=== PATIENT | female | born 1945 | race Caucasian/White ===

== ENCOUNTER 2017-10-10 17:20 | Inpatient (IN) | payer MEDICARE, BC ==
--- NOTE | 2017-10-10 17:42 | ER Document Report ---
ED Fall - General Mode of Arrival: Ambulatory Information source: Patient <KIRBY RITCHIEMARY - Last Filed: 10/10/17 17:46> <KULWINDER BENNETT - Last Filed: 10/10/17 22:11> - General Stated Complaint: HIP PAIN Time Seen by Provider: 10/10/17 17:33 Notes: Patient is a 72 year old female presents to the emergency department complaining of left hip pain secondary to a mechanical trip and fall. Patient states she was getting the mail and walking back to her house she tripped and fell. According to nurse, EMS found the patient ambulating upon their arrival. Patient states also complains of some heartburn onset this morning and nausea onset after the fall. She denies any loss of consciousness or head trauma. (ERMAEMMANUEL) - Related data Allergies/Adverse Reactions: Penicillins Allergy (Verified 10/10/17 19:32) Past Medical History - General Information source: Patient - Social History Smoking Status: Current Every Day Smoker Cigarette use (# per day): Yes Chew tobacco use (# tins/day): No Smoking Education Provided: No Frequency of alcohol use: None Drug Abuse: None Family History: Reviewed & Not Pertinent Psychiatric Medical History: Reports: Hx Schizophrenia <ERMA,KIRBYMARY - Last Filed: 10/10/17 17:46> Review of Systems - Review of Systems Constitutional: No symptoms reported EENT: No symptoms reported Cardiovascular: See HPI Respiratory: No symptoms reported Gastrointestinal: See HPI, Nausea Genitourinary: No symptoms reported Female Genitourinary: No symptoms reported Musculoskeletal: See HPI Skin: No symptoms reported Hematologic/Lymphatic: No symptoms reported Neurological/Psychological: No symptoms reported -: Yes All other systems reviewed and negative <EMMANUEL RITCHIE - Last Filed: 10/10/17 17:46> Physical Exam <EMMANUEL RITCHIE - Last Filed: 10/10/17 17:46> <KULWINDER BENNETT - Last Filed: 10/10/17 22:11> - Vital signs Vitals: Resp 13 10/10/17 17:27 - Notes Notes: GENERAL: Alert, interacts well. No acute distress. HEAD: Normocephalic, atraumatic. EYES: Pupils equal, round, and reactive to light. Extraocular movements intact. ENT: Oral mucosa moist, tongue midline. NECK: Full range of motion. Supple. Trachea midline. LUNGS: Clear to auscultation bilaterally, no wheezes, rales, or rhonchi. No respiratory distress. HEART: Regular rate and rhythm. No murmurs, gallops, or rubs. ABDOMEN: Soft, non-tender. Non-distended. Bowel sounds present in all 4 quadrants. EXTREMITIES: Moves all 4 extremities spontaneously. Left leg is shorter than the right. Tender to palpation to the left greater trochanter. Pelvis binder in place, poorly. No edema, radial and dorsalis pedis pulses 2/4 bilaterally. No cyanosis. NEUROLOGICAL: Alert and oriented x3. Normal speech. PSYCH: Normal affect, normal mood. SKIN: Warm, dry, normal turgor. No rashes or lesions noted. (EMMANUEL RITCHIE) Course <EMMANUEL RITCHIE - Last Filed: 10/10/17 17:46> - Laboratory Result Diagrams: 10/10/17 19:00 10/10/17 19:00 <KULWINDER BENNETT - Last Filed: 10/10/17 22:11> - Re-evaluation Re-evalutation: 10/10/17 20:32 Mechanical trip and fall, no head injury, no indication for intracranial imaging , x-ray of the hip reveals left intertrochanteric hip fracture, he did perform a chest x-ray and initial cardiac workup as she complained of indigestion for the majority of the day prior to the fall, EKG is nonischemic, blood work is grossly unremarkable and cardiac enzymes are negative. Discussed the patient with Dr. Mas who states he would be happy to consult to repair the hip fracture but requests admission and medical management by the hospitalist. Discussed with Dr. Romie Leahy who agrees to admit the patient to his service on the telemetry care floor (KULWINDER BENNETT) - Vital Signs Vital signs: Temp Pulse Resp BP Pulse Ox 98.1 F 20 149/70 H 97 10/10/17 17:32 10/10/17 20:00 10/10/17 17:28 10/10/17 20:00 - Laboratory Laboratory results interpreted by me: 10/10/17 10/10/17 19:00 19:00 WBC 10.7 H Seg Neutrophils % 90.4 H Lymphocytes % 6.6 L Monocytes % 2.6 L Absolute Neutrophils 9.6 H BUN 31 H Est GFR ( Amer) 58 L Est GFR (Non-Af Amer) 48 L Glucose 158 H Total Protein 5.7 L - EKG Interpretation by Me Additional EKG results interpreted by me: 10/10/17 20:33 EKG shows sinus rhythm at a rate of 71, left axis deviation, normal intervals, no ST segment elevations or depressions, there are T-wave inversions in 1 and aVL per my interpretation. (KULWINDER BENNETT) Discharge <EMMANUEL RITCHIE - Last Filed: 10/10/17 17:46> - Discharge Admitting Provider: [facility] Unit Admitted: Telemetry <KULWINDER BENNETT - Last Filed: 10/10/17 22:11> - Discharge Clinical Impression: Hip fracture, left Qualifiers: Encounter type: initial encounter Fracture type: closed Qualified Code(s): S72.002A - Fracture of unspecified part of neck of left femur, initial encounter for closed fracture Condition: Stable Disposition: ADMITTED INPATIENT Scribe Attestation: 10/10/17 22:11 I personally performed the services described in the documentation, reviewed and edited the documentation which was dictated to the scribe in my presence, and it accurately records my words and actions. (KULWINDER BENNETT) Scribe Documentation - Scribe Written by Maira:: Maira Ramos, 10/10/2017 17:47 acting as scribe for :: [place] <EMMANUEL RITCHIE - Last Filed: 10/10/17 17:46>
--- NOTE | 2017-10-10 18:38 | RADIOLOGY REPORT (SQ) ---
EXAM DESCRIPTION: CHEST SINGLE VIEW COMPLETED DATE/TIME: 10/10/2017 6:24 pm REASON FOR STUDY: fall, left hip pain, heartburn COMPARISON: None. EXAM PARAMETERS: NUMBER OF VIEWS: One view. TECHNIQUE: Single frontal radiographic view of the chest acquired. RADIATION DOSE: NA LIMITATIONS: None. FINDINGS: LUNGS AND PLEURA: No opacities, masses or pneumothorax. No pleural effusion. MEDIASTINUM AND HILAR STRUCTURES: No masses. Contour normal. HEART AND VASCULAR STRUCTURES: Heart normal in size. Normal vasculature. BONES: No acute findings. HARDWARE: None in the chest. OTHER: No other significant finding. IMPRESSION: NO ACUTE RADIOGRAPHIC FINDING IN THE CHEST. TECHNICAL DOCUMENTATION: JOB ID: [id number] [employer]- All Rights Reserved Reading location - IP/workstation name: [email or web address]
--- NOTE | 2017-10-10 18:39 | RADIOLOGY REPORT (SQ) ---
EXAM DESCRIPTION: HIP LEFT AP/LATERAL COMPLETED DATE/TIME: 10/10/2017 6:24 pm REASON FOR STUDY: fall, left hip pain, heartburn COMPARISON: None. NUMBER OF VIEWS: Two views. TECHNIQUE: AP pelvis and additional frog-leg view of the left hip. LIMITATIONS: None. FINDINGS: MINERALIZATION: Normal. LEFT HIP: Comminuted intratrochanteric fracture of the left hip. The femoral head it remains well se ated within the acetabulum. RIGHT HIP: No fracture or dislocation. No worrisome bone lesions. PUBIS AND ISCHIUM: No fracture. PELVIS: No fracture. SACRUM: No fracture or dislocation. No worrisome bone lesions. LOWER LUMBAR SPINE: No fracture or dislocation. No worrisome bone lesions. No significant disc disea se. SOFT TISSUES: No findings. OTHER: No other significant finding. IMPRESSION: Comminuted intratrochanteric fracture of the left hip. TECHNICAL DOCUMENTATION: JOB ID: [id number] [employer]- All Rights Reserved Reading location - IP/workstation name: [email or web address]
[2017-10-10 19:17] LABS: ABSOLUTE LYMPHOCYTES (AUTO) 0.7 10^3/uL (0.5-4.7); ABSOLUTE MONOCYTES (AUTO) 0.3 10^3/uL (0.1-1.4); ABSOLUTE NEUT (AUTO) 9.6 10^3/uL (1.7-8.2); BASOPHILS % (AUTO) 0.3 % (0-2); EOSINOPHILS % (AUTO) 0.1 % (0-6); HEMATOCRIT 39.3 % (36.0-47.0); HEMOGLOBIN 13.7 g/dL (12.0-15.5); LYMPHOCYTES % (AUTO) 6.6 % (13-45); MEAN CORPUSCULAR HEMOGLOBIN 30.4 pg (27.0-33.4); MEAN CORPUSCULAR HGB CONC 34.8 g/dL (32.0-36.0); MEAN CORPUSCULAR VOLUME 88 fl (80-97); MONOCYTES % (AUTO) 2.6 % (3-13); PLATELET COUNT 185 10^3/uL (150-450); RED BLOOD COUNT 4.49 10^6/uL (3.72-5.28); RED CELL DISTRIBUTION WIDTH 13.9 % (11.5-14.0); SEGMENTED NEUTROPHILS % (AUTO) 90.4 % (42-78); TOTAL CELLS COUNTED % (AUTO) 100 %; WHITE BLOOD COUNT 10.7 10^3/uL (4.0-10.5)
[2017-10-10 19:21] LABS: INTERNATIONAL RATION (INR) 0.98; PROTHROMBIN TIME 13.5 SEC (11.4-15.4)
[2017-10-10 19:22] LABS: PARTIAL THROMBOPLASTIN TIME 23.7 SEC (23.5-35.8)
[2017-10-10 19:43] LABS: ALANINE AMINOTRANSFERASE 19 U/L (9-52); ALBUMIN 3.6 g/dL (3.5-5.0); ALKALINE PHOSPHATASE 94 U/L (38-126); ANION GAP 13 (5-19); ASPARTATE AMINO TRANSFERASE 23 U/L (14-36); BILIRUBIN,DIRECT 0.4 mg/dL (0.0-0.4); BILIRUBIN,TOTAL 0.5 mg/dL (0.2-1.3); BLOOD UREA NITROGEN 31 mg/dL (7-20); CALCIUM 9.3 mg/dL (8.4-10.2); CARBON DIOXIDE 23 mmol/L (22-30); CHLORIDE 104 mmol/L (98-107); CREATINE KINASE 84 U/L (30-135); GLUCOSE 158 mg/dL (75-110); POTASSIUM 4.5 mmol/L (3.6-5.0); SODIUM 140.3 mmol/L (137-145); TOTAL PROTEIN 5.7 g/dL (6.3-8.2)
[2017-10-10 19:50] LABS: CREATINE KINASE MB 0.64 ng/mL (<4.55)
[2017-10-10 20:01] LABS: TROPONIN I < 0.012 ng/mL
[2017-10-10] MEDS ORDERED: MORPHINE SULFATE 10 MG/ML INJ IV ONE (20:17)
[2017-10-10] MEDS ORDERED: ACETAMINOPHEN 325 MG TABLET PO PRN (20:58)
[2017-10-10] MEDS ORDERED: HYDRALAZINE HCL INJ/PF 20 MG/1 ML SDV IV PRN (20:58)
[2017-10-10] MEDS ORDERED: KETOROLAC TROMETHAMINE INJ/PF 30 MG/1 ML SDV IV PRN (20:58)
[2017-10-10] MEDS ORDERED: MAGNESIUM HYDROXIDE SUSP 30 ML UDCUP PO PRN (20:59)
[2017-10-10] MEDS ORDERED: GLUCAGON,HUMAN RECOMB 1 MG INJ SUBCUT PRN (20:59)
[2017-10-10] MEDS ORDERED: DEXTROSE 50%-WATER 25 GM/50 ML DISP.SYRIN IV PRN ×2 (20:59)
[2017-10-10] MEDS ORDERED: IPRATROPIUM/ALBUTEROL 0.5-2.5 MG/3 ML AMPUL NEB PRN (20:59)
[2017-10-10] MEDS ORDERED: FENTANYL CITRATE INJ/PF 100 MCG/2 ML AMPUL IV PRN (20:59)
[2017-10-10] MEDS ORDERED: DEXTROSE 40% GEL 15 GM TUBE PO PRN ×2 (20:59)
[2017-10-10] MEDS ORDERED: NORMAL SALINE 1000 ML 1,000 ML IV SCH (21:00)
[2017-10-10] MEDS ORDERED: HEPARIN SOD (PORCINE) 5,000 UNIT/ML 1 ML SYRINGE SUBCUT SCH (22:00)
[2017-10-10] MEDS: HEPARIN SOD (PORCINE) 5,000 UNIT/ML 1 ML SYRINGE SUBCUT SCH (22:31)
--- NOTE | 2017-10-10 22:51 | EKG REPORT ---
SEVERITY:- ABNORMAL ECG - SINUS RHYTHM ATRIAL PREMATURE COMPLEX PROBABLE LVH WITH SECONDARY REPOL ABNRM : Confirmed by: Chadwick Mathew MD 10-Oct-2017 22:51:13
[2017-10-11] MEDS: ACETAMINOPHEN 325 MG TABLET PO PRN (01:23)
[2017-10-11 06:00] LABS: HEMATOCRIT 32.3 % (36.0-47.0); MEAN CORPUSCULAR HEMOGLOBIN 30.4 pg (27.0-33.4); MEAN CORPUSCULAR HGB CONC 33.9 g/dL (32.0-36.0); MEAN CORPUSCULAR VOLUME 90 fl (80-97); PLATELET COUNT 138 10^3/uL (150-450); RED BLOOD COUNT 3.61 10^6/uL (3.72-5.28); RED CELL DISTRIBUTION WIDTH 14.1 % (11.5-14.0); WHITE BLOOD COUNT 12.3 10^3/uL (4.0-10.5)
[2017-10-11] MEDS ORDERED: METOPROLOL TARTRATE 25 MG TABLET PO ONE (06:15)
[2017-10-11 06:32] LABS: ANION GAP 12 (5-19); BLOOD UREA NITROGEN 42 mg/dL (7-20); CALCIUM 8.2 mg/dL (8.4-10.2); CARBON DIOXIDE 21 mmol/L (22-30); CHLORIDE 108 mmol/L (98-107); GLUCOSE 148 mg/dL (75-110); POTASSIUM 4.5 mmol/L (3.6-5.0); SODIUM 141.1 mmol/L (137-145)
[2017-10-11 06:36] LABS: ABSOLUTE LYMPHOCYTES# (MANUAL) 0.6 10^3/uL (0.5-4.7); ABSOLUTE MONOCYTES # (MANUAL) 0.4 10^3/uL (0.1-1.4); ABSOLUTE NEUTROPHILS# (MANUAL) 11.3 10^3/uL (1.7-8.2); BASOPHILS % (MANUAL) 0 % (0-2); EOSINOPHILS % (MANUAL) 0 % (0-6); LYMPHOCYTES % (MANUAL) 5 % (13-45); MONOCYTES % (MANUAL) 3 % (3-13); PLATELET COMMENT ADEQUATE; SEGMENTED NEUTROPHILS % (MAN) 92 % (42-78); TOTAL CELLS COUNTED 100
[2017-10-11] MEDS: HEPARIN SOD (PORCINE) 5,000 UNIT/ML 1 ML SYRINGE SUBCUT SCH ×2 (06:48→15:02)
--- NOTE | 2017-10-11 07:23 | PDOC H&P ---
History of Present Illness Admission Date/PCP: 10/10/17 20:48 AMANDA ARAGON MD Patient complains of: Left hip pain History of Present Illness: JOHNNY JOINER is a 72 year old female with a past medical history of schizophrenia and hypertension who presents after falling after tripping despite the use of a walker. She fell to her left side resulting in pain denies striking her head or any other injury. She denies preceding headache, blurred vision, dizziness or weakness. No new recent changes in medications. She is in good spirits and denies pain. She is a poor historian but ambulatory and sociable at baseline. Past Medical History Cardiac Medical History: Reports: Hypertension Pulmonary Medical History: Reports: None EENT Medical History: Reports: None Neurological Medical History: Reports: None Endocrine Medical History: Reports: None Renal/ Medical History: Reports: None Malignancy Medical History: Reports: None GI Medical History: Reports: None Musculoskeltal Medical History: Reports: None Skin Medical History: Reports: None Psychiatric Medical History: Reports: Depression, Schizoaffective Disorder Social History Information Source: Friend Lives with: Family Smoking Status: Current Every Day Smoker Cigarettes Packs Per Day: 1 Number of Years Smokin Last Time Smoked: 10/10/17 Frequency of Alcohol Use: None Hx Recreational Drug Use: No Drugs: None Hx Prescription Drug Abuse: No - Advance Directive Resuscitation Status: Full Code Family History Family History: Other - Unknown Parental Family History Reviewed: Yes Children Family History Reviewed: Yes Sibling(s) Family History Reviewed.: Yes Medication/Allergy Allergies/Adverse Reactions: Penicillins Allergy (Verified 10/10/17 19:32) Review of Systems ROS unobtainable: Due to mental status - Poor historian Physical Exam Vital Signs: Temp Pulse Resp BP Pulse Ox 98.0 F 86 14 109/48 L 91 L 10/11/17 03:13 10/11/17 03:13 10/11/17 03:13 10/11/17 03:13 10/11/17 03:13 Intake & Output 10/09/17 10/10/17 10/11/17 11:59 11:59 11:59 Intake Total 0 Output Total 0 Balance 0 Weight 57.3 kg General appearance: PRESENT: cooperative, mild distress, well-developed, well- nourished. ABSENT: disheveled Head exam: PRESENT: atraumatic, normocephalic Eye exam: PRESENT: conjunctiva pink, EOMI, PERRLA. ABSENT: scleral icterus Ear exam: PRESENT: normal external ear exam Mouth exam: PRESENT: moist, tongue midline Teeth exam: PRESENT: edentulous Neck exam: ABSENT: carotid bruit, JVD, lymphadenopathy, thyromegaly Respiratory exam: PRESENT: clear to auscultation milvia. ABSENT: rales, rhonchi, wheezes Cardiovascular exam: PRESENT: RRR. ABSENT: diastolic murmur, rubs, systolic murmur Pulses: PRESENT: normal dorsalis pedis pul Vascular exam: PRESENT: normal capillary refill GI/Abdominal exam: PRESENT: normal bowel sounds, soft. ABSENT: distended, guarding, mass, organolmegaly, rebound, tenderness Rectal exam: PRESENT: deferred Extremities exam: PRESENT: tenderness - Left leg shortened and externally rotated. ABSENT: full ROM Neurological exam: PRESENT: alert, awake, oriented to person, oriented to place , oriented to time, oriented to situation, CN II-XII grossly intact. ABSENT: motor sensory deficit Psychiatric exam: PRESENT: manic, unusual affect Skin exam: PRESENT: dry, intact, warm. ABSENT: cyanosis, rash Results Laboratory Results: 10/11/17 05:33 10/11/17 05:33 WBC 12.3 H RBC 3.61 L Hgb 11.0 L D Hct 32.3 L MCV 90 MCH 30.4 MCHC 33.9 RDW 14.1 H Plt Count 138 L Seg Neutrophils % Not Reportable Lymphocytes % Not Reportable Monocytes % Not Reportable Eosinophils % Not Reportable Basophils % Not Reportable Absolute Neutrophils Not Reportable Absolute Lymphocytes Not Reportable Absolute Monocytes Not Reportable Absolute Eosinophils Not Reportable Absolute Basophils Not Reportable Impressions: Chest X-Ray 10/10/17 17:44 IMPRESSION: NO ACUTE RADIOGRAPHIC FINDING IN THE CHEST. Hip X-Ray 10/10/17 17:44 IMPRESSION: Comminuted intratrochanteric fracture of the left hip. Assessment & Plan - Diagnosis (1) Hip fracture, left Qualifiers: Encounter type: initial encounter Fracture type: closed Qualified Code(s) : S72.002A - Fracture of unspecified part of neck of left femur, initial encounter for closed fracture Is this a current diagnosis for this admission?: Yes Plan: Patient was unclear cardiopulmonary history, tobacco dependent, moderate risk of operative cardiopulmonary complication. Follow-up cardiology and orthopedic consult (2) Hypertension Is this a current diagnosis for this admission?: Yes Plan: Resume home beta-louis (3) Schizophrenia Is this a current diagnosis for this admission?: Yes Plan: Resume home regiment and supportive care - Time Time Spent: 30 to 50 Minutes - Inpatient Certification Medical Necessity: Need Close Monitoring Due to Risk of Patient Decompensation
[2017-10-11] MEDS ORDERED: NORMAL SALINE 1000 ML 1,000 ML IV PRN (09:23)
[2017-10-11] MEDS: FLUTICASONE NASAL SPRAY 50 MCG/SPRY 120 SPRAY/16 GM NASL SCH ×3 (09:32→22:20)
[2017-10-11] MEDS: DOCUSATE SODIUM 100 MG CAPSULE PO SCH ×2 (09:33→17:24)
[2017-10-11] MEDS ORDERED: LORAZEPAM 0.5 MG TABLET PO PRN (11:33)
[2017-10-11 15:40] LABS: HEMATOCRIT 31.4 % (36.0-47.0); HEMOGLOBIN 10.8 g/dL (12.0-15.5); MEAN CORPUSCULAR HEMOGLOBIN 30.4 pg (27.0-33.4); MEAN CORPUSCULAR HGB CONC 34.3 g/dL (32.0-36.0); MEAN CORPUSCULAR VOLUME 89 fl (80-97); PLATELET COUNT 142 10^3/uL (150-450); RED BLOOD COUNT 3.55 10^6/uL (3.72-5.28); RED CELL DISTRIBUTION WIDTH 14.2 % (11.5-14.0); WHITE BLOOD COUNT 11.6 10^3/uL (4.0-10.5)
[2017-10-11] MEDS: NICOTINE 21 MG/24 HR PATCH.TD24 TD SCH (16:16)
--- NOTE | 2017-10-11 16:29 | PDOC CONSULTATION ---
Consultation Consult Date: 10/11/17 Consult reason:: Left intertrochanteric hip fracture History of Present Illness Admission Date/PCP: 10/10/17 20:48 AMANDA ARAGON MD History of Present Illness: JOHNNY JOINER is a 72 year old female female [place] who is a poor historian. Patient status post mechanical fall onto left hip suffered a left intertrochanteric hip fracture. Complains of left hip pain. Denies any loss of consciousness or any other extremity injuries. Her nephew is the power of title attorney. Patient was brought by EMS where x-rays were taken showing the fracture. Complains deformity and pain with attempted range of motion and the pain is 5 out of 5 with motion. Denies any numbness or tingling or paresthesias. Past Medical History Cardiac Medical History: Reports: Hypertension Pulmonary Medical History: Reports: None EENT Medical History: Reports: None Neurological Medical History: Reports: None Endocrine Medical History: Reports: None Renal/ Medical History: Reports: None Malignancy Medical History: Reports: None GI Medical History: Reports: None Musculoskeltal Medical History: Reports: None Skin Medical History: Reports: None Psychiatric Medical History: Reports: Depression, Schizoaffective Disorder Social History Lives with: Family Smoking Status: Current Every Day Smoker Cigarettes Packs Per Day: 1 Number of Years Smokin Last Time Smoked: 10/10/17 Frequency of Alcohol Use: None Hx Recreational Drug Use: No Drugs: None Hx Prescription Drug Abuse: No - Advance Directive Resuscitation Status: Full Code Family History Family History: Other - Unknown Parental Family History Reviewed: No Children Family History Reviewed: No Sibling(s) Family History Reviewed.: No Medication/Allergy Home Medications: Amlodipine Besylate [Norvasc 10 mg Tablet] 10 mg PO DAILY 10/11/17 Atorvastatin Calcium [Lipitor 20 mg Tablet] 20 mg PO QHS 10/11/17 Benztropine Mesylate [Cogentin 1 mg Tablet] 1 mg PO BID 10/11/17 Diazepam [Valium 2 mg Tablet] 2 mg PO Q12HP PRN 10/11/17 Lisinopril [Prinivil 40 mg Tablet] 40 mg PO DAILY 10/11/17 Lorazepam [Ativan 0.5 mg Tablet] 0.5 mg PO Q8HP PRN 10/11/17 Metoprolol Succinate [Toprol XL 100 mg Tablet] 100 mg PO DAILY 10/11/17 Mirtazapine [Remeron] 30 mg PO QHS 10/11/17 Omeprazole 20 mg PO BID 10/11/17 Risperidone [Risperdal] 4.5 mg PO DAILY 10/11/17 Allergies/Adverse Reactions: Penicillins Allergy (Verified 10/10/17 19:32) Review of Systems ROS unobtainable: Due to mental status - Patient has dementia and although responds to person place does have some baseline dementia and history was given by the nephew Physical Exam Vital Signs: Temp Pulse Resp BP Pulse Ox 37.2 C 99 18 129/71 H 97 10/11/17 08:16 10/11/17 09:27 10/11/17 09:27 10/11/17 08:16 10/11/17 09:27 Intake & Output 10/10/17 10/11/17 10/12/17 06:59 06:59 06:59 Intake Total 0 Output Total 0 Balance 0 Weight 57.3 kg General appearance: PRESENT: no acute distress Head exam: PRESENT: atraumatic, normocephalic Eye exam: PRESENT: EOMI, other - Symmetric round pupils. ABSENT: nystagmus Ear exam: PRESENT: normal external ear exam. ABSENT: bleeding, drainage Mouth exam: PRESENT: neck supple Neck exam: ABSENT: lymphadenopathy, tenderness, thyromegaly Respiratory exam: PRESENT: symmetrical, unlabored. ABSENT: accessory muscle use , tachypnea Cardiovascular exam: PRESENT: RRR Pulses: PRESENT: +2 pedal pulses bilateral Vascular exam: PRESENT: normal capillary refill GI/Abdominal exam: PRESENT: soft. ABSENT: guarding, tenderness Musculoskeletal exam: PRESENT: deformity, tenderness Neurological exam: PRESENT: awake, oriented to person, oriented to place, oriented to time. ABSENT: oriented to situation Psychiatric exam: PRESENT: appropriate affect, normal mood Skin exam: PRESENT: intact. ABSENT: erythema, rash Adult Front & Back Image: 1 - Short and externally rotated left lower extremity. Tender to palpation with crepitus of the hip. Attempted range of motion causes significant pain. She is neurovascular intact distally with good capillary refill and intact motor and sensory to light touch. Results Laboratory Results: 10/11/17 05:33 10/11/17 05:33 10/11/17 10/11/17 05:33 05:33 WBC 12.3 H RBC 3.61 L Hgb 11.0 L D Hct 32.3 L MCV 90 MCH 30.4 MCHC 33.9 RDW 14.1 H Plt Count 138 L Seg Neutrophils % Not Reportable Lymphocytes % Not Reportable Monocytes % Not Reportable Eosinophils % Not Reportable Basophils % Not Reportable Absolute Neutrophils Not Reportable Absolute Lymphocytes Not Reportable Absolute Monocytes Not Reportable Absolute Eosinophils Not Reportable Absolute Basophils Not Reportable Sodium 141.1 Potassium 4.5 Chloride 108 H Carbon Dioxide 21 L Anion Gap 12 BUN 42 H Creatinine 1.11 Est GFR ( Amer) 58 L Est GFR (Non-Af Amer) 48 L Glucose 148 H Calcium 8.2 L Impressions: Chest X-Ray 10/10/17 17:44 IMPRESSION: NO ACUTE RADIOGRAPHIC FINDING IN THE CHEST. Hip X-Ray 10/10/17 17:44 IMPRESSION: Comminuted intratrochanteric fracture of the left hip. Assessment & Plan - Diagnosis (1) Hip fracture, left Qualifiers: Encounter type: initial encounter Fracture type: closed Qualified Code(s) : S72.002A - Fracture of unspecified part of neck of left femur, initial encounter for closed fracture Is this a current diagnosis for this admission?: Yes Plan: 72-year-old female with displaced left intertrochanteric hip fracture. Discussed the findings with the patient and the nephew who is the power of title attorney. Discussed the risk and benefits and they agreed to consent to proceed with cephalo-medullary nailing of her left intertrochanteric hip fracture. Patient currently will continue pain control and bedrest. After anesthesia evaluation the patient will require cardiac clearance therefore we will proceed with surgery tomorrow on 10/12/2017 barring any issues. Continue pain control as well. We will make her n.p.o. and start IV fluids after midnight. Currently she can have a regular diet
[2017-10-11] MEDS ORDERED: DEXTROSE 50%-WATER 25 GM/50 ML DISP.SYRIN IV PRN ×2 (16:39)
[2017-10-11] MEDS ORDERED: DEXTROSE 40% GEL 15 GM TUBE PO PRN ×2 (16:39)
[2017-10-11] MEDS ORDERED: GLUCAGON,HUMAN RECOMB 1 MG INJ SUBCUT PRN (16:39)
[2017-10-11] MEDS ORDERED: RISPERIDONE 1 MG TABLET PO ONE (16:41)
--- NOTE | 2017-10-11 17:25 | PDOC PROGRESS REPORT ---
Subjective Progress Note for:: 10/11/17 Subjective:: The patient is a 72-year-old female with a past medical history of schizophrenia and hypertension who was admitted 10/10/18 for left hip fracture sustained during a mechanical fall. The patient is seen on morning rounds. She is found sitting upright in bed on room air. She is comfortable, smiling, and engaging with the nursing staff today. She tells me that she is feeling well and that her pain is well controlled. She denies fever, chills, chest pain, palpitations, dyspnea, cough, abdominal pain. She has no questions or concerns at this time. Reason For Visit: LEFT HIP FRACTURE SCHIZOPHRENIA Physical Exam Vital Signs: Temp Pulse Resp BP Pulse Ox 100.1 F 103 H 16 121/69 95 10/11/17 15:43 10/11/17 15:43 10/11/17 15:43 10/11/17 15:43 10/11/17 15:43 Intake & Output 10/10/17 10/11/17 10/12/17 06:59 06:59 06:59 Intake Total 0 Output Total 0 Balance 0 Weight 57.3 kg General appearance: PRESENT: no acute distress, cooperative, thin, well- developed Head exam: PRESENT: atraumatic, normocephalic Eye exam: PRESENT: conjunctiva pink, EOMI, PERRLA. ABSENT: scleral icterus Ear exam: PRESENT: normal external ear exam Mouth exam: PRESENT: moist, tongue midline Teeth exam: PRESENT: edentulous Neck exam: ABSENT: carotid bruit, JVD, lymphadenopathy, thyromegaly Respiratory exam: PRESENT: clear to auscultation milvia, symmetrical, unlabored. ABSENT: rales, rhonchi, wheezes Cardiovascular exam: PRESENT: RRR. ABSENT: diastolic murmur, rubs, systolic murmur Pulses: PRESENT: normal dorsalis pedis pul Vascular exam: PRESENT: normal capillary refill GI/Abdominal exam: PRESENT: normal bowel sounds, soft. ABSENT: distended, guarding, mass, organolmegaly, rebound, tenderness Rectal exam: PRESENT: deferred Extremities exam: PRESENT: tenderness - LLE; shortened and externally rotated. ABSENT: calf tenderness, clubbing, pedal edema Neurological exam: PRESENT: alert, awake, oriented to person, oriented to place , oriented to situation, CN II-XII grossly intact. ABSENT: oriented to time, motor sensory deficit Psychiatric exam: PRESENT: normal mood, unusual affect. ABSENT: homicidal ideation, suicidal ideation Skin exam: PRESENT: dry, intact, warm. ABSENT: cyanosis, rash Results Laboratory Results: 10/11/17 14:45 10/11/17 05:33 10/11/17 10/11/17 10/11/17 05:33 05:33 14:45 WBC 12.3 H 11.6 H RBC 3.61 L 3.55 L Hgb 11.0 L D 10.8 L Hct 32.3 L 31.4 L MCV 90 89 MCH 30.4 30.4 MCHC 33.9 34.3 RDW 14.1 H 14.2 H Plt Count 138 L 142 L Seg Neutrophils % Not Reportable Lymphocytes % Not Reportable Monocytes % Not Reportable Eosinophils % Not Reportable Basophils % Not Reportable Absolute Neutrophils Not Reportable Absolute Lymphocytes Not Reportable Absolute Monocytes Not Reportable Absolute Eosinophils Not Reportable Absolute Basophils Not Reportable Sodium 141.1 Potassium 4.5 Chloride 108 H Carbon Dioxide 21 L Anion Gap 12 BUN 42 H Creatinine 1.11 Est GFR ( Amer) 58 L Est GFR (Non-Af Amer) 48 L Glucose 148 H Calcium 8.2 L Blood Type Antibody Screen 10/11/17 14:45 WBC RBC Hgb Hct MCV MCH MCHC RDW Plt Count Seg Neutrophils % Lymphocytes % Monocytes % Eosinophils % Basophils % Absolute Neutrophils Absolute Lymphocytes Absolute Monocytes Absolute Eosinophils Absolute Basophils Sodium Potassium Chloride Carbon Dioxide Anion Gap BUN Creatinine Est GFR ( Amer) Est GFR (Non-Af Amer) Glucose Calcium Blood Type O POSITIVE Antibody Screen NEGATIVE Impressions: Chest X-Ray 10/10/17 17:44 IMPRESSION: NO ACUTE RADIOGRAPHIC FINDING IN THE CHEST. Hip X-Ray 10/10/17 17:44 IMPRESSION: Comminuted intratrochanteric fracture of the left hip. Assessment & Plan - Diagnosis (1) Hip fracture, left Qualifiers: Encounter type: initial encounter Fracture type: closed Qualified Code(s) : S72.002A - Fracture of unspecified part of neck of left femur, initial encounter for closed fracture Is this a current diagnosis for this admission?: Yes Plan: Primary plan per orthopedics. Cardiology has been consulted for cardiac clearance. Echocardiogram is pending. Analgesics and antiemetics as needed. Anticipate acute rehabilitation at discharge; discharge planning is consulted. (2) Hypertension Is this a current diagnosis for this admission?: Yes Plan: Normotensive at present. The patient's home medication regimen is continued. (3) Schizophrenia Is this a current diagnosis for this admission?: Yes Plan: The patient's home medications are continued. (4) Anemia Qualifiers: Anemia type: unspecified type Qualified Code(s): D64.9 - Anemia, unspecified Is this a current diagnosis for this admission?: Yes Plan: Hgb of 13.7 on admission; trended down to 11.0 overnight following IVF. Hgb this afternoon is stable at 10.8 The patient has been Blood Banded in anticipation of possible transfusion needs. (5) Leukocytosis Qualifiers: Leukocytosis type: bandemia Qualified Code(s): D72.825 - Bandemia Is this a current diagnosis for this admission?: Yes Plan: Likely related to hip fracture. However, the patient was noted this afternoon to have a low-grade temperature of 100.1, tachycardia (86-106), and tachypnea ( 22). The patient denies chest pain, palpitations, dyspnea, orthopnea, and cough. Chest x-ray is clear. Incentive spirometry to bedside. We will also obtain urinalysis. - Time Time Spent with patient: 15-24 minutes Medications reviewed and adjusted accordingly: Yes Anticipated discharge: Acute Rehab
[2017-10-11] MEDS: BENZTROPINE MESYLATE 1 MG TABLET PO SCH (17:34)
--- NOTE | 2017-10-11 17:41 | XCELERA REPORT ---
[address] [address] Transthoracic Echocardiogram Report Name: JOHNNY JOINER Age: 72 yrs Gender: Female : 1945 Patient Status: Inpatient Patient Location: [address] [place] [address] Study Date: 10/11/2017 11:48 AM Procedure: A two-dimensional transthoracic echocardiogram with color flow Doppler was performed. Study Quality: Technically suboptimal. The study was technically difficult with many images being suboptimal in quality. Poor doppler interogation. Reason For Study: Murmur / Htb / Preoperative Cardiac risk assessmen History: Murmur / HTN/ Preoperative Cardiac risk assessmen. Ordering Physician: BERENICE TAN Performed By: Britni Gonzalez Interpretation Summary Poor doppler interogation. The left ventricle is normal in size. There is normal left ventricular wall thickness. LV EF is 65% Left ventricular systolic function is normal. Doppler measurements suggest impaired left ventricular relaxation, which is associated with grade I/IV or mild diastolic dysfunction The left ventricular wall motion is normal. The right ventricle is not well visualized secondary to technical limitations The right ventricle is grossly normal size. The right atrium is normal. Probably upper normal LA size. There is no evidence of mitral valve prolapse. There is no vegetation seen on the mitral valve. There is no mitral valve stenosis. There is no mitral regurgitation noted. There is no aortic valve stenosis There is aortic sclerosis without aortic stenosis. No aortic regurgitation is present. There is no tricuspid stenosis. There is mild pulmonary hypertension by echo RSVP is equal to is 35 to 40 mm of Hg , with TRA mean of 5 to 10. Poor interogation of Tricuspid valve, probably trace to mild TR , but cannot be sure. The pulmonic valve is not well visualized. The inferior vena cava appeared normal and decreased > 50% with respiration (RAP 5-10 mmHg) There is no pericardial effusion. MMode/2D Measurements & Calculations RVDd: 3.0 cm LVIDd: 3.5 cm FS: 32.1 % Ao root diam: 2.8 cm IVSd: 1.1 cm LVIDs: 2.4 cm EDV(Teich): 49.5 ml Ao root area: 6.3 cm2 LVPWd: 0.96 cm ESV(Teich): 19.1 ml EF(Teich): 61.3 % Doppler Measurements & Calculations Ao V2 max: LV V1 max PG: PA V2 max: TR max jazmin: 154.4 cm/sec 9.4 mmHg 122.2 cm/sec 273.7 cm/sec Ao max P.6 mmHg LV V1 mean PG: PA max PG: TR max PG: Ao V2 mean: 5.3 mmHg 6.0 mmHg 30.0 mmHg 111.7 cm/sec LV V1 max: Ao mean P.2 cm/sec 5.5 mmHg LV V1 mean: 109.4 cm/sec Ao V2 VTI: 26.6 cm LV V1 VTI: 27.2 cm Left Ventricle The left ventricle is normal in size. There is normal left ventricular wall thickness. LV EF is 65%. Left ventricular systolic function is normal. Doppler measurements suggest impaired left ventricular relaxation, which is associated with grade I/IV or mild diastolic dysfunction. The left ventricular wall motion is normal. Right Ventricle The right ventricle is not well visualized secondary to technical limitations. The right ventricle is grossly normal size. Atria The right atrium is normal. Probably upper normal LA size. Mitral Valve There is no evidence of mitral valve prolapse. There is no vegetation seen on the mitral valve. There is no mitral valve stenosis. There is no mitral regurgitation noted. Aortic Valve There is no aortic valvular vegetation. There is no aortic valve stenosis. There is aortic sclerosis without aortic stenosis. No aortic regurgitation is present. Tricuspid Valve There is no tricuspid stenosis. There is mild pulmonary hypertension by echo. RSVP is equal to is 35 to 40 mm of Hg , with TRA mean of 5 to 10. Poor interogation of Tricuspid valve, probably trace to mild TR , but cannot be sure. Pulmonic Valve The pulmonic valve is not well visualized. Great Vessels The aortic root is not well visualized. The inferior vena cava appeared normal and decreased > 50% with respiration (RAP 5-10 mmHg). Effusions There is no pericardial effusion. : BERENICE TAN > Berenice Tan
[2017-10-11] MEDS ORDERED: RISPERIDONE 1 MG TABLET ONE (17:51)
[2017-10-11] MEDS ORDERED: METOPROLOL TARTRATE 25 MG TABLET PO SCH (18:00)
[2017-10-11] MEDS ORDERED: LANSOPRAZOLE 15 MG TAB.RAP.DR PO SCH (18:00)
[2017-10-11] MEDS: ATORVASTATIN CALCIUM 20 MG TABLET PO SCH (22:22)
[2017-10-11] MEDS: MIRTAZAPINE 15 MG TABLET PO SCH (22:26)
[2017-10-11 22:35] LABS: APPEARANCE,URINE SLIGHTLY-CLOUDY; BILIRUBIN,URINE NEGATIVE (NEGATIVE); COLOR,URINE AMBER; GLUCOSE, URINE NEGATIVE (NEGATIVE); KETONES,URINE TRACE mg/dL (NEGATIVE); LEUKOCYTE ESTERASE,URINE NEGATIVE (NEGATIVE); NITRITE,URINE NEGATIVE (NEGATIVE); PROTEIN,URINE NEGATIVE (NEGATIVE); URINE SPECIFIC GRAVITY 1.019
[2017-10-12] MEDS: RINGERS SOLUTION,LACTATED 1,000 ML IV PRN ×3 (00:21→18:30)
[2017-10-12] MEDS: MIRTAZAPINE 15 MG TABLET PO SCH ×2 (03:49→22:37)
[2017-10-12 05:45] LABS: ABSOLUTE LYMPHOCYTES (AUTO) 0.4 10^3/uL (0.5-4.7); ABSOLUTE MONOCYTES (AUTO) 0.7 10^3/uL (0.1-1.4); ABSOLUTE NEUT (AUTO) 6.2 10^3/uL (1.7-8.2); BASOPHILS % (AUTO) 0.1 % (0-2); HEMATOCRIT 26.7 % (36.0-47.0); HEMOGLOBIN 9.3 g/dL (12.0-15.5); LYMPHOCYTES % (AUTO) 5.1 % (13-45); MEAN CORPUSCULAR HEMOGLOBIN 30.6 pg (27.0-33.4); MEAN CORPUSCULAR HGB CONC 34.7 g/dL (32.0-36.0); MEAN CORPUSCULAR VOLUME 88 fl (80-97); PLATELET COUNT 112 10^3/uL (150-450); RED BLOOD COUNT 3.02 10^6/uL (3.72-5.28); RED CELL DISTRIBUTION WIDTH 13.9 % (11.5-14.0); SEGMENTED NEUTROPHILS % (AUTO) 85.8 % (42-78); TOTAL CELLS COUNTED % (AUTO) 100 %; WHITE BLOOD COUNT 7.3 10^3/uL (4.0-10.5)
[2017-10-12 06:04] LABS: ANION GAP 8 (5-19); BLOOD UREA NITROGEN 42 mg/dL (7-20); CALCIUM 8.3 mg/dL (8.4-10.2); CARBON DIOXIDE 24 mmol/L (22-30); CHLORIDE 107 mmol/L (98-107); GLUCOSE 120 mg/dL (75-110); POTASSIUM 4.2 mmol/L (3.6-5.0); SODIUM 138.6 mmol/L (137-145)
[2017-10-12] MEDS: DOCUSATE SODIUM 100 MG CAPSULE PO SCH ×2 (09:09→17:59)
[2017-10-12] MEDS: FLUTICASONE NASAL SPRAY 50 MCG/SPRY 120 SPRAY/16 GM NASL SCH ×2 (09:11→22:38)
[2017-10-12] MEDS ORDERED: RISPERIDONE PO SCH (10:00)
[2017-10-12] MEDS ORDERED: METOPROLOL TARTRATE 25 MG TABLET PO SCH (10:00)
[2017-10-12] MEDS ORDERED: RISPERIDONE 1 MG TABLET PO SCH ×2 (10:00→16:00)
[2017-10-12] MEDS: BENZTROPINE MESYLATE 1 MG TABLET PO SCH ×2 (10:55→18:01)
[2017-10-12] MEDS: AMLODIPINE BESYLATE 10 MG TABLET PO SCH (10:55)
[2017-10-12] MEDS: LANSOPRAZOLE 15 MG TAB.RAP.DR PO SCH ×2 (10:56→16:58)
[2017-10-12] MEDS: NICOTINE 21 MG/24 HR PATCH.TD24 TD SCH (10:56)
[2017-10-12] MEDS: METOPROLOL SUCCINATE 50 MG TAB.SR.24H PO SCH (10:57)
[2017-10-12] MEDS ORDERED: LIDOCAINE 2% INJ-PF (20 MG/ML) 10 ML AMPUL ONE (11:12)
[2017-10-12] MEDS ORDERED: FENTANYL CITRATE INJ/PF 100 MCG/2 ML AMPUL ONE (11:12)
[2017-10-12] MEDS ORDERED: MIDAZOLAM 2 MG/2 ML INJ ONE (11:13)
[2017-10-12] MEDS ORDERED: PROPOFOL INJ 200 MG/20 ML VIAL IV ONE (11:13)
[2017-10-12] MEDS ORDERED: BUPIVACAINE HCL/DEX-WATER/PF 15 MG/2 ML AMPULE ONE (11:18)
[2017-10-12] MEDS ORDERED: CLINDAMYCIN PHOSPHATE INJ 300 MG/2 ML SDV ONE (11:41)
[2017-10-12] MEDS ORDERED: PROMETHAZINE HCL INJ 25 MG/1 ML VIAL IV PRN ×2 (12:25)
[2017-10-12] MEDS ORDERED: FENTANYL CITRATE INJ/PF 100 MCG/2 ML AMPUL IV PRN ×3 (12:25)
[2017-10-12] MEDS ORDERED: DIPHENHYDRAMINE HCL 50 MG/ML VIAL IV PRN (12:25)
[2017-10-12] MEDS ORDERED: MEPERIDINE HCL/PF INJ 25 MG/1 ML DISP.SYRIN IV PRN (12:25)
[2017-10-12] MEDS ORDERED: MORPHINE SULFATE 10 MG/ML INJ IV PRN (12:25)
[2017-10-12] MEDS ORDERED: MAG HYDROX/AL HYDROX/SIMETH SUSP 30 ML UDCUP PO PRN (12:54)
[2017-10-12] MEDS ORDERED: ONDANSETRON HCL INJ/PF 4 MG/2 ML SDV IV PRN (12:54)
--- NOTE | 2017-10-12 12:54 | Operative Report ---
Operative Report DATE OF SURGERY: 10/12/17 PREOPERATIVE DIAGNOSIS: Left intertrochanteric hip fracture POSTOPERATIVE DIAGNOSIS: Same OPERATION: Cephalo-medullary nailing left hip fracture SURGEON: MASON DELA CRUZ ANESTHESIA: Spinal TISSUE REMOVED OR ALTERED: None COMPLICATIONS: None ESTIMATED BLOOD LOSS: 50 mL INTRAOPERATIVE FINDINGS: As above PROCEDURE: Patient was seen and evaluated in the preoperative holding area. The left lower extremity was initialized and marked. Patient received 600 mg of clindamycin IV for bacterial prophylaxis. Patient was taken back to the operative room where transferred operative table. Patient was placed under spinal anesthesia. Once adequate anesthetized he was carefully placed onto the hip positioner the nonoperative lower extremity and bilateral upper extremities were carefully padded and the peroneal nerve was padded and on the nonoperative extremity. The operative extremity was placed in a traction along with adduction and internal rotation. A surgical team debriefing was performed ensuring all instrumentation was available, the surgical procedure was discussed with possible concerns reviewed. A timeout was done identifying correct patient, procedure and extremity everyone in attendance agree with this and verbalized no concerns. Reduction maneuver with the use of the hip traction table were done and C-arm fluoroscopy was used to confirm optimal reduction of the intertrochanteric fracture. Once this was confirmed the lower extremity was prepped with chlor prep and draped in a sterile fashion. At this point a small skin incision was made proximal to the greater trochanter. The guidewire was placed onto the tip of the trochanter advanced down to the level of the lesser trochanter. AP and lateral fluoroscopy was used to confirm appropriate placement of the guidewire. The skin incision was then extended and the underlying fascia opened up carefully to the tip of the greater trochanter. The entry reamer was then used and advanced to the level of the lesser trochanter. At this point Houstonia short gamma nail was opened up and placed onto the aiming arm and advanced down the shaft of the femur. AP and lateral fluoroscopy was then used to confirm appropriate placement of the nail. Then turned my attention to the compression screw fixation in the femoral head. The trochars were advanced to the skin, a skin incision was made, careful dissection down to the fascia to the lateral femoral cortex was then partaken. The guidewire was then used and placed in the center center position with the tip apex distance less than 25 mm. Once this position was obtained the size of the compression screw was measured. AP and lateral fluoroscopy used to confirm appropriate placement of our guide wire. The step reamer was used to drill up through the femoral neck and head. I then carefully advanced the compression screw into position. AP and lateral fluoroscopy was done to confirm appropriate placement of the compression screw this was then locked into position proximally. The compression screw was then disengaged from its mounting device and the guidewire was removed. Lastly proceeded with locking of the nail distally. Using the aiming arm the trochars were advanced to the skin, a skin incision was made. Careful dissection done with a hemostat to the lateral cortex of the femur. I then drilled the near and far cortices. Measured the appropriate sized distal locking screw and secured it into position. At this point AP/lateral and oblique views of the proximal and distal aspect of the nail were taken confirming appropriate placement of the compression screw, distal locking screw and intramedullary nail. Once this was confirmed I proceeded with copious irrigation of the proximal and distal wounds. The deep tissues were closed with 0 Vicryl suture, subcutaneous tissues were closed with 3-0 Monocryl suture. The skin was closed a running 3-0 subcuticular Monocryl suture and reinforced with Dermabond & Steri-Strips. A dressing was placed. Sponge counts, instrument counts and needle counts were correct. Patient was then transferred from the operating room table to the operating room stretcher. The was no intraoperative complications patient tolerated procedure well was stable to PACU. Implants used: Richard 11 x 180 mm 125 Short Gamma Nail with a 90 mm compression screw Postoperative plan: Patient will begin physical therapy on postop day #1 with Xarelto daily.
[2017-10-12] MEDS ORDERED: OXYCODONE HCL IR 5 MG TABLET PO PRN (13:26)
--- NOTE | 2017-10-12 14:41 | PDOC PROGRESS REPORT ---
Subjective Progress Note for:: 10/12/17 Subjective:: The patient is a 72-year-old female with a past medical history of schizophrenia and hypertension who was admitted 10/10/18 for left hip fracture sustained during a mechanical fall. The patient is seen on morning rounds. She is resting in bed comfortably on room air. She is initially found sleeping but does wake easily when I say her name. She tells me that she is feeling well today. She denies chest pain, dyspnea, cough, abdominal pain, nausea and vomiting. She states that her pain is well controlled at present. She has no questions or concerns at this time. No concerns per nursing. Reason For Visit: LEFT HIP FRACTURE SCHIZOPHRENIA Physical Exam Vital Signs: Temp Pulse Resp BP Pulse Ox 98.8 F 100 14 115/54 L 98 10/12/17 13:38 10/12/17 13:38 10/12/17 13:38 10/12/17 13:38 10/12/17 13:38 Intake & Output 10/11/17 10/12/17 10/13/17 06:59 06:59 06:59 Intake Total 0 1320 2000 Output Total 0 900 540 Balance 0 420 1460 Weight 57.3 kg 57.5 kg General appearance: PRESENT: no acute distress, cooperative - Pleasant, well- developed, well-nourished Head exam: PRESENT: atraumatic, normocephalic Eye exam: PRESENT: conjunctiva pink, EOMI, PERRLA. ABSENT: scleral icterus Ear exam: PRESENT: normal external ear exam Mouth exam: PRESENT: moist, tongue midline Neck exam: ABSENT: carotid bruit, JVD, lymphadenopathy, thyromegaly Respiratory exam: PRESENT: clear to auscultation milvia, symmetrical, unlabored. ABSENT: rales, rhonchi, wheezes Cardiovascular exam: PRESENT: RRR. ABSENT: diastolic murmur, rubs, systolic murmur Pulses: PRESENT: normal dorsalis pedis pul Vascular exam: PRESENT: normal capillary refill GI/Abdominal exam: PRESENT: normal bowel sounds, soft. ABSENT: distended, guarding, mass, organolmegaly, rebound, tenderness Rectal exam: PRESENT: deferred Extremities exam: PRESENT: tenderness - LLE. ABSENT: calf tenderness, clubbing , pedal edema Neurological exam: PRESENT: alert, awake, oriented to person, oriented to place , oriented to situation, CN II-XII grossly intact, other - Pleasantly confused. ABSENT: motor sensory deficit Psychiatric exam: PRESENT: appropriate affect, normal mood. ABSENT: homicidal ideation, suicidal ideation Skin exam: PRESENT: dry, intact, warm. ABSENT: cyanosis, rash Results Laboratory Results: 10/12/17 05:24 10/12/17 05:24 10/11/17 10/11/17 10/11/17 14:45 14:45 21:53 WBC 11.6 H RBC 3.55 L Hgb 10.8 L Hct 31.4 L MCV 89 MCH 30.4 MCHC 34.3 RDW 14.2 H Plt Count 142 L Seg Neutrophils % Lymphocytes % Monocytes % Eosinophils % Basophils % Absolute Neutrophils Absolute Lymphocytes Absolute Monocytes Absolute Eosinophils Absolute Basophils Sodium Potassium Chloride Carbon Dioxide Anion Gap BUN Creatinine Est GFR ( Amer) Est GFR (Non-Af Amer) Glucose Calcium Urine Color EDIN Urine Appearance SLIGHTLY-CLOUDY Urine pH 5.0 Ur Specific [place] 1.019 Urine Protein NEGATIVE Urine Glucose (UA) NEGATIVE Urine Ketones TRACE H Urine Blood NEGATIVE Urine Nitrite NEGATIVE Ur Leukocyte Esterase NEGATIVE Urine WBC (Auto) 1 Urine RBC (Auto) 0 Blood Type O POSITIVE Antibody Screen NEGATIVE 10/12/17 10/12/17 05:24 05:24 WBC 7.3 RBC 3.02 L Hgb 9.3 L Hct 26.7 L MCV 88 MCH 30.6 MCHC 34.7 RDW 13.9 Plt Count 112 L Seg Neutrophils % 85.8 H Lymphocytes % 5.1 L Monocytes % 9.0 Eosinophils % 0.0 Basophils % 0.1 Absolute Neutrophils 6.2 Absolute Lymphocytes 0.4 L Absolute Monocytes 0.7 Absolute Eosinophils 0.0 Absolute Basophils 0.0 Sodium 138.6 Potassium 4.2 Chloride 107 Carbon Dioxide 24 Anion Gap 8 BUN 42 H Creatinine 0.93 Est GFR ( Amer) > 60 Est GFR (Non-Af Amer) 59 L Glucose 120 H Calcium 8.3 L Urine Color Urine Appearance Urine pH Ur Specific [place] Urine Protein Urine Glucose (UA) Urine Ketones Urine Blood Urine Nitrite Ur Leukocyte Esterase Urine WBC (Auto) Urine RBC (Auto) Blood Type Antibody Screen Impressions: Chest X-Ray 10/10/17 17:44 IMPRESSION: NO ACUTE RADIOGRAPHIC FINDING IN THE CHEST. Hip X-Ray 10/10/17 17:44 IMPRESSION: Comminuted intratrochanteric fracture of the left hip. Assessment & Plan - Diagnosis (1) Hip fracture, left Qualifiers: Encounter type: initial encounter Fracture type: closed Qualified Code(s) : S72.002A - Fracture of unspecified part of neck of left femur, initial encounter for closed fracture Is this a current diagnosis for this admission?: Yes Plan: Primary plan per orthopedics; now s/p nailing repair by Dr. Tg Hernandez. Cardiology provided cardiac clearance. Analgesics and antiemetics as needed. Anticipate acute rehabilitation at discharge; discharge planning is consulted. (2) Hypertension Is this a current diagnosis for this admission?: Yes Plan: Normotensive at present. The patient's home medication regimen is continued. (3) Schizophrenia Is this a current diagnosis for this admission?: Yes Plan: The patient's home medications are continued. (4) Anemia Qualifiers: Anemia type: unspecified type Qualified Code(s): D64.9 - Anemia, unspecified Is this a current diagnosis for this admission?: Yes Plan: Hgb of 13.7 on admission; trended down to 9.3 The patient has been Blood Banded in anticipation of possible transfusion needs. (5) Leukocytosis Qualifiers: Leukocytosis type: bandemia Qualified Code(s): D72.825 - Bandemia Is this a current diagnosis for this admission?: Yes Plan: Resolved. Likely related to hip fracture. The patient was noted this afternoon to have a low-grade temperature of 100.1, tachycardia (86-106), and tachypnea (22). The patient denies chest pain, palpitations, dyspnea, orthopnea, and cough. Chest x-ray is clear. Urinalysis negative. Incentive spirometry to bedside. - Time Time Spent with patient: 15-24 minutes Medications reviewed and adjusted accordingly: Yes Anticipated discharge: Acute Rehab
--- NOTE | 2017-10-12 15:54 | RADIOLOGY REPORT (SQ) ---
EXAM DESCRIPTION: HIP IN OPERATING RM COMPLETED DATE/TIME: 10/12/2017 3:00 pm REASON FOR STUDY: ORIF LEFT HIP ASST WITH FLUORO IN OR COMPARISON: 10/10/2017 FLUOROSCOPY TIME: 1 minutes 3 digital C-arm images saved to PACS. TECHNIQUE: Intra-operative images acquired during surgical procedure to evaluate progress. NUMBER OF IMAGES: Cine fluoroscopic images. LIMITATIONS: None. FINDINGS: Intra procedural imaging and fluoro during ORIF left intertrochanteric fracture. Good ali gnment at the fracture site. Lag screw and short intramedullary nail are present. Please see the op erative report for further details IMPRESSION: Intra procedural imaging and fluoro COMMENT: Quality ID [id number]: Final reports for procedures using fluoroscopy that document radiation exp osure indices, or exposure time and number of fluorographic images (if radiation exposure indices are not available) Please consult full operative report of the attending physician for description of the procedure. TECHNICAL DOCUMENTATION: JOB ID: [id number] [employer]- All Rights Reserved Reading location - IP/workstation name: [facility]
[2017-10-12] MEDS: RIVAROXABAN 10 MG TABLET PO SCH (16:58)
[2017-10-12] MEDS: SENNOSIDES/DOCUSATE 8.6-50 MG 1 EACH TABLET PO SCH (17:59)
[2017-10-12] MEDS: RISPERIDONE 1 MG TABLET PO SCH (18:01)
[2017-10-12] MEDS: OXYCODONE HCL IR 5 MG TABLET PO PRN (18:04)
[2017-10-12] MEDS: ATORVASTATIN CALCIUM 20 MG TABLET PO SCH (22:37)
[2017-10-13] MEDS ORDERED: VANCOMYCIN HCL 1,000 MG in DEXTROSE 5%-WATER 250 ML IV ONE (00:54)
[2017-10-13] MEDS: RINGERS SOLUTION,LACTATED 1,000 ML IV PRN (06:07)
[2017-10-13 07:09] LABS: ABSOLUTE LYMPHOCYTES (AUTO) 0.4 10^3/uL (0.5-4.7); ABSOLUTE MONOCYTES (AUTO) 0.4 10^3/uL (0.1-1.4); ABSOLUTE NEUT (AUTO) 4.2 10^3/uL (1.7-8.2); BASOPHILS % (AUTO) 0.2 % (0-2); EOSINOPHILS % (AUTO) 0.6 % (0-6); HEMATOCRIT 21.5 % (36.0-47.0); MEAN CORPUSCULAR HEMOGLOBIN 30.4 pg (27.0-33.4); MEAN CORPUSCULAR HGB CONC 34.8 g/dL (32.0-36.0); MEAN CORPUSCULAR VOLUME 88 fl (80-97); MONOCYTES % (AUTO) 8.7 % (3-13); RED BLOOD COUNT 2.45 10^6/uL (3.72-5.28); RED CELL DISTRIBUTION WIDTH 14.1 % (11.5-14.0); SEGMENTED NEUTROPHILS % (AUTO) 83.5 % (42-78); TOTAL CELLS COUNTED % (AUTO) 100 %
--- NOTE | 2017-10-13 07:16 | PROGRESS NOTE E ---
Progress Note NAME: JOHNNY JOINER : 1945 AGE: 72Y DATE: 10/12/2017 ROOM: 427 SUBJECTIVE: The patient has had her surgery. She denies any chest pain or discomfort. There is no shortness of breath. There is no wheezing or cough. There are no TIA or CVA symptoms. There is no PND, orthopnea. There are no anginal symptoms. OBJECTIVE: GENERAL: On examination, the patient is in no acute distress. She states the pain is well controlled. She is of frail built and appears older than her stated age, but is well groomed. VITAL SIGNS: She is afebrile with a temperature of 98.2 degrees Fahrenheit, pulse is 86 beats per minute, blood pressure 112/54, respirations are 16 per minute, O2 saturations 100% on nasal cannula 2 L. HEAD: Atraumatic, normocephalic. EYES: Pupils are equal, round, regular, reactive to light and accommodation. Extraocular movements are normal. There is no conjunctival pallor. There is no scleral icterus. ENT: Negative. NECK: Supple. There is no JVD. Carotids are equal. There is no bruit. There is no lymphadenopathy. There is no goiter. Trachea is central. LUNGS: Diminished air entry, prolonged expiration without any rhonchi, rales, or wheezing. CARDIOVASCULAR SYSTEM: S1 and S2 are heard. There is no S3 gallop. There is no S4 gallop. There is a systolic murmur left sternal border of the apex. There is no rub. ABDOMEN: Soft, nontender. There is no hepatosplenomegaly. Bowel sounds are well heard. There are no tender areas or masses. EXTREMITIES: Femorals are diminished. There are no femoral bruits. Leg pulses are diminished. There is no pedal edema. There is no DVT or cellulitis. There is no calf tenderness. Her left hip dressing is dry and clean. CENTRAL NERVOUS SYSTEM: The patient is conscious, awake, alert, oriented x3 with no focal deficit. PSYCHIATRIC: The patient's judgment and insight are intact. Her affect is normal. LABORATORY: The patient's white count is 7300, hemoglobin is 9.3, hematocrit is 26.7, platelet count is 112,000. The patient's sodium is 138.6, potassium 4.2, chloride is 107, CO2 is 24. The patient's BUN is 42, creatinine 0.93. GFR has improved to 59 from 48 yesterday. Her glucose is 120. Her calcium is 8.3. IMPRESSION: 1. ACCIDENTAL FALL AND LEFT HIP FRACTURE STATUS POST SURGERY FOR THE SAME. 2. HYPERTENSION, WELL CONTROLLED. Continue beta louis and amlodipine. 3. SCHIZOPHRENIA, STABLE ON CURRENT MEDICATION. 4. RENAL FAILURE, IMPROVING, MOST LIKELY THIS IS PRERENAL AND SECONDARY TO PROBABLY BLOOD LOSS DUE TO A FRACTURE. GFR is improving. Continue hydration. 5. ABNORMAL EKG. Will recheck the patient's EKG in the a.m. along with troponin I. 6. COPD. 7. TOBACCO ABUSE. 8. MULTIPLE CAD RISK FACTORS, MAINLY AGE, HYPERTENSION, AND SMOKING. As mentioned, the patient is stable. Will recheck the patient's EKG in the a.m. Will check the patient's troponin I in the a.m. Medical decision making is of moderate complexity. NOTE: Forty minutes spent on this patient with more than 50% of the time spent in direct patient care. Her medications have been reviewed. Discussed with the hospitalist taking care of the patient. Discussed with the patient. DICTATING PHYSICIAN: FELICITAS TAN M.D. [id number] MICHAEL#: [id number] ID: [id number] JOB#: [id number] ACCT: [id number] cc: >
[2017-10-13 07:24] LABS: ANION GAP 6 (5-19); BLOOD UREA NITROGEN 20 mg/dL (7-20); CALCIUM 7.9 mg/dL (8.4-10.2); CARBON DIOXIDE 24 mmol/L (22-30); CHLORIDE 108 mmol/L (98-107); GLUCOSE 113 mg/dL (75-110); POTASSIUM 3.6 mmol/L (3.6-5.0); SODIUM 137.6 mmol/L (137-145)
[2017-10-13 07:50] LABS: HEMOGLOBIN 7.5 g/dL (12.0-15.5)
[2017-10-13 07:51] LABS: PLATELET COUNT 93 10^3/uL (150-450)
--- NOTE | 2017-10-13 08:01 | PDOC PROGRESS REPORT ---
Subjective Progress Note for:: 10/13/17 Subjective:: Patient is sleeping in bed. No issues overnight. Reason For Visit: STATUS POST NAILING OF LEFT HIP FRACTURE Physical Exam Vital Signs: Temp Pulse Resp BP Pulse Ox 36.8 C 92 14 136/77 H 96 10/13/17 03:36 10/13/17 07:00 10/13/17 03:36 10/13/17 03:36 10/13/17 03:36 Intake & Output 10/12/17 10/13/17 10/14/17 06:59 06:59 06:59 Intake Total 1320 4486 Output Total 900 1240 Balance 420 3246 Weight 57.5 kg 57.6 kg Adult Front & Back Image: 1 - Dressings with mild bloody drainage. Lower extremity patient is neurovascular intact with soft calves and negative Homans sign Results Laboratory Results: 10/13/17 06:40 10/13/17 06:40 10/13/17 10/13/17 06:40 06:40 WBC 5.0 RBC 2.45 L Hgb 7.5 L Hct 21.5 L MCV 88 MCH 30.4 MCHC 34.8 RDW 14.1 H Plt Count 93 L Seg Neutrophils % 83.5 H Lymphocytes % 7.0 L Monocytes % 8.7 Eosinophils % 0.6 Basophils % 0.2 Absolute Neutrophils 4.2 Absolute Lymphocytes 0.4 L Absolute Monocytes 0.4 Absolute Eosinophils 0.0 Absolute Basophils 0.0 Sodium 137.6 Potassium 3.6 Chloride 108 H Carbon Dioxide 24 Anion Gap 6 BUN 20 Creatinine 0.65 Est GFR ( Amer) > 60 Est GFR (Non-Af Amer) > 60 Glucose 113 H Calcium 7.9 L 10/13/17 06:40 Troponin I 0.019 Impressions: Chest X-Ray 10/10/17 17:44 IMPRESSION: NO ACUTE RADIOGRAPHIC FINDING IN THE CHEST. Hip X-Ray 10/12/17 00:00 IMPRESSION: Intra procedural imaging and fluoro Assessment & Plan - Diagnosis (1) Hip fracture, left Qualifiers: Encounter type: initial encounter Fracture type: closed Qualified Code(s) : S72.002A - Fracture of unspecified part of neck of left femur, initial encounter for closed fracture Is this a current diagnosis for this admission?: Yes - Plan Summary Plan Summary: Patient is 72-year-old female POD #1 from cephalo-medullary nailing of left hip fracture. Continue physical therapy Continue pain control Continue DVT prophylaxis Awaiting [facility] facility placement
[2017-10-13] MEDS: LANSOPRAZOLE 15 MG TAB.RAP.DR PO SCH ×2 (08:08→15:40)
[2017-10-13] MEDS ORDERED: NORMAL SALINE 250 ML IV PRN ×2 (08:21)
--- NOTE | 2017-10-13 08:53 | EKG REPORT ---
SEVERITY:- NORMAL ECG - SINUS RHYTHM NONSPECIFIC ST-T CHANGES MOST LIKELY LVH RELATED VS ISCHEMIA : Confirmed by: Sotero Crowder 13-Oct-2017 08:52:04
[2017-10-13] MEDS: BENZTROPINE MESYLATE 1 MG TABLET PO SCH ×2 (09:32→20:06)
[2017-10-13] MEDS: OXYCODONE HCL IR 5 MG TABLET PO PRN (09:32)
[2017-10-13] MEDS: AMLODIPINE BESYLATE 10 MG TABLET PO SCH (09:32)
[2017-10-13] MEDS: PRENATAL VITAMIN W DHA CAPSULE PO SCH (09:32)
[2017-10-13] MEDS: DOCUSATE SODIUM 100 MG CAPSULE PO SCH ×2 (09:32→20:07)
[2017-10-13] MEDS: METOPROLOL SUCCINATE 50 MG TAB.SR.24H PO SCH (09:35)
[2017-10-13] MEDS: NICOTINE 21 MG/24 HR PATCH.TD24 TD SCH (09:36)
[2017-10-13] MEDS: FLUTICASONE NASAL SPRAY 50 MCG/SPRY 120 SPRAY/16 GM NASL SCH ×2 (09:37→21:59)
[2017-10-13] MEDS: SENNOSIDES/DOCUSATE 8.6-50 MG 1 EACH TABLET PO SCH ×2 (09:40→20:07)
[2017-10-13] MEDS ORDERED: METOCLOPRAMIDE HCL INJ/PF 10 MG/2 ML SDV IV SCH (12:45)
[2017-10-13] MEDS: RIVAROXABAN 10 MG TABLET PO SCH (20:06)
[2017-10-13] MEDS: RISPERIDONE 1 MG TABLET PO SCH (20:25)
[2017-10-13 21:07] LABS: ABSOLUTE LYMPHOCYTES (AUTO) 0.4 10^3/uL (0.5-4.7); ABSOLUTE MONOCYTES (AUTO) 0.4 10^3/uL (0.1-1.4); ABSOLUTE NEUT (AUTO) 6.4 10^3/uL (1.7-8.2); BASOPHILS % (AUTO) 0.1 % (0-2); EOSINOPHILS % (AUTO) 0.4 % (0-6); HEMATOCRIT 28.3 % (36.0-47.0); MEAN CORPUSCULAR HEMOGLOBIN 30.3 pg (27.0-33.4); MEAN CORPUSCULAR HGB CONC 35.1 g/dL (32.0-36.0); MEAN CORPUSCULAR VOLUME 87 fl (80-97); MONOCYTES % (AUTO) 5.4 % (3-13); PLATELET COUNT 118 10^3/uL (150-450); RED BLOOD COUNT 3.28 10^6/uL (3.72-5.28); RED CELL DISTRIBUTION WIDTH 14.3 % (11.5-14.0); SEGMENTED NEUTROPHILS % (AUTO) 88.1 % (42-78); TOTAL CELLS COUNTED % (AUTO) 100 %; WHITE BLOOD COUNT 7.3 10^3/uL (4.0-10.5)
[2017-10-13 21:08] LABS: HEMOGLOBIN 9.9 g/dL (12.0-15.5)
[2017-10-13] MEDS: MIRTAZAPINE 15 MG TABLET PO SCH (21:59)
[2017-10-13] MEDS: ATORVASTATIN CALCIUM 20 MG TABLET PO SCH (21:59)
--- NOTE | 2017-10-14 05:23 | PDOC PROGRESS REPORT ---
<BLANCASPILAR Renita - Last Filed: 10/14/17 05:22> Subjective Progress Note for:: 10/13/17 Subjective:: The patient is a 72-year-old female with a past medical history of schizophrenia and hypertension who was admitted 10/10/18 for left hip fracture sustained during a mechanical fall. POD#1 Cephalo-medullary nailing left hip fracture. The patient was seen this morning on rounds. She is A&O x 3. Denies complaints. States she is able to tolerate physical therapy. Hgb dropped from 9-->7.3 this morning, receiving 2UPRBC. Reason For Visit: STATUS POST NAILING OF LEFT HIP FRACTURE Physical Exam Vital Signs: Temp Pulse Resp BP Pulse Ox 99.0 F 105 H 18 150/67 H 95 10/14/17 04:31 10/14/17 04:31 10/14/17 04:31 10/14/17 04:31 10/14/17 04:31 Intake & Output 10/12/17 10/13/17 10/14/17 06:59 06:59 06:59 Intake Total 1320 4486 600 Output Total 900 1240 300 Balance 420 3246 300 Weight 57.5 kg 57.6 kg General appearance: PRESENT: no acute distress, thin Head exam: PRESENT: atraumatic Eye exam: PRESENT: conjunctiva pale, PERRLA Mouth exam: PRESENT: moist Neck exam: PRESENT: full ROM. ABSENT: JVD Respiratory exam: PRESENT: clear to auscultation milvia, symmetrical, unlabored Cardiovascular exam: PRESENT: +S1, +S2 Vascular exam: PRESENT: pallor GI/Abdominal exam: PRESENT: normal bowel sounds, soft, tenderness - mild TTP. Patient reports constipation Rectal exam: PRESENT: deferred Extremities exam: ABSENT: full ROM, pedal edema Musculoskeletal exam: PRESENT: ambulatory - with assistance. ABSENT: full ROM Neurological exam: PRESENT: alert, awake, oriented to person, oriented to place , oriented to time, oriented to situation Skin exam: PRESENT: dry, intact, pallor, warm Results Laboratory Results: 10/13/17 20:56 10/13/17 06:40 10/11/17 10/13/17 10/13/17 14:45 06:40 06:40 WBC 5.0 RBC 2.45 L Hgb 7.5 L Hct 21.5 L MCV 88 MCH 30.4 MCHC 34.8 RDW 14.1 H Plt Count 93 L Seg Neutrophils % 83.5 H Lymphocytes % 7.0 L Monocytes % 8.7 Eosinophils % 0.6 Basophils % 0.2 Absolute Neutrophils 4.2 Absolute Lymphocytes 0.4 L Absolute Monocytes 0.4 Absolute Eosinophils 0.0 Absolute Basophils 0.0 Sodium 137.6 Potassium 3.6 Chloride 108 H Carbon Dioxide 24 Anion Gap 6 BUN 20 Creatinine 0.65 Est GFR ( Amer) > 60 Est GFR (Non-Af Amer) > 60 Glucose 113 H Calcium 7.9 L Blood Type O POSITIVE Antibody Screen NEGATIVE 10/13/17 20:56 WBC 7.3 RBC 3.28 L Hgb 9.9 L D Hct 28.3 L MCV 87 MCH 30.3 MCHC 35.1 RDW 14.3 H Plt Count 118 L Seg Neutrophils % 88.1 H Lymphocytes % 6.0 L Monocytes % 5.4 Eosinophils % 0.4 Basophils % 0.1 Absolute Neutrophils 6.4 Absolute Lymphocytes 0.4 L Absolute Monocytes 0.4 Absolute Eosinophils 0.0 Absolute Basophils 0.0 Sodium Potassium Chloride Carbon Dioxide Anion Gap BUN Creatinine Est GFR ( Amer) Est GFR (Non-Af Amer) Glucose Calcium Blood Type Antibody Screen 10/13/17 06:40 Troponin I 0.019 Impressions: Chest X-Ray 10/10/17 17:44 IMPRESSION: NO ACUTE RADIOGRAPHIC FINDING IN THE CHEST. Hip X-Ray 10/12/17 00:00 IMPRESSION: Intra procedural imaging and fluoro Status: Imported from PACS Assessment & Plan - Diagnosis (1) Hip fracture, left QualifierTitle: Encounter type: initial encounter Fracture type: closed Qualified Code(s): S72.002A - Fracture of unspecified part of neck of left femur, initial encounter for closed fracture Is this a current diagnosis for this admission?: Yes Plan: POD#1 Cephalo-medullary nailing left hip fracture. Plan per Othro Anticipate acute rehab following d/c from [facility] Discharge planning aware (2) Anemia QualifierTitle: Anemia type: unspecified type Qualified Code(s): D64.9 - Anemia, unspecified Is this a current diagnosis for this admission?: Yes Plan: Postoperative anemia Hgb dropped from 9-->7.5 Transfuse 2UPRBC No signs of active bleeding - denies vomiting, no bloody stool Plan for guiac and post-transfusion CBC (3) Hypertension QualifierTitle: Hypertension type: essential hypertension Qualified Code( s): I10 - Essential (primary) hypertension Is this a current diagnosis for this admission?: Yes Plan: History of HTN Resume home medications (4) Leukocytosis QualifierTitle: Leukocytosis type: bandemia Qualified Code(s): D72.825 - Bandemia Is this a current diagnosis for this admission?: Yes Plan: Resolved Secondary to hip fracture (5) Schizophrenia Is this a current diagnosis for this admission?: Yes Plan: History of Schizophrenia Continue home medications - Time Time Spent with patient: 15-24 minutes Medications reviewed and adjusted accordingly: Yes Anticipated discharge: Acute Rehab Within: within 48 hours - Inpatient Certification Based on my medical assessment, after consideration of the patient's comorbidities, presenting symptoms, or acuity I expect that the services needed warrant INPATIENT care.: Yes I certify that my determination is in accordance with my understanding of Medicare's requirements for reasonable and necessary INPATIENT services [42 CFR 412.3e].: Yes Medical Necessity: Risk of Complication if Not Cared For in Hospital <SAUNDRA JULIO M - Last Filed: 10/27/17 15:33> Subjective Reason For Visit: STATUS POST NAILING OF LEFT HIP FRACTURE Physical Exam Vital Signs: Temp Pulse Resp BP Pulse Ox 98.8 F 76 18 129/59 H 93 10/21/17 15:36 10/21/17 15:36 10/21/17 15:36 10/21/17 15:36 10/21/17 15:36 Results Laboratory Results: 10/21/17 05:28 10/21/17 05:28 10/13/17 06:40 Troponin I 0.019 Impressions: Chest X-Ray 10/10/17 17:44 IMPRESSION: NO ACUTE RADIOGRAPHIC FINDING IN THE CHEST. Hip X-Ray 10/12/17 00:00 IMPRESSION: Intra procedural imaging and fluoro Provider Note Provider Note: I have discussed this patient in detail with SILVANA Valdovinos. I am in agreement with her evaluation and plan.
[2017-10-14 06:53] LABS: HEMATOCRIT 29.6 % (36.0-47.0); HEMOGLOBIN 10.4 g/dL (12.0-15.5); MEAN CORPUSCULAR HEMOGLOBIN 30.3 pg (27.0-33.4); MEAN CORPUSCULAR VOLUME 87 fl (80-97); PLATELET COUNT 123 10^3/uL (150-450); RED BLOOD COUNT 3.43 10^6/uL (3.72-5.28); RED CELL DISTRIBUTION WIDTH 14.6 % (11.5-14.0); WHITE BLOOD COUNT 7.1 10^3/uL (4.0-10.5)
[2017-10-14] MEDS: OXYCODONE HCL IR 5 MG TABLET PO PRN (09:06)
[2017-10-14] MEDS: BENZTROPINE MESYLATE 1 MG TABLET PO SCH ×2 (09:06→18:18)
[2017-10-14] MEDS: NICOTINE 21 MG/24 HR PATCH.TD24 TD SCH (09:08)
[2017-10-14] MEDS: AMLODIPINE BESYLATE 10 MG TABLET PO SCH (09:08)
[2017-10-14] MEDS: LANSOPRAZOLE 15 MG TAB.RAP.DR PO SCH ×2 (09:08→18:14)
[2017-10-14] MEDS: PRENATAL VITAMIN W DHA CAPSULE PO SCH (09:08)
[2017-10-14] MEDS: METOPROLOL SUCCINATE 50 MG TAB.SR.24H PO SCH (09:08)
[2017-10-14] MEDS: SENNOSIDES/DOCUSATE 8.6-50 MG 1 EACH TABLET PO SCH ×2 (09:13→18:19)
[2017-10-14] MEDS: FLUTICASONE NASAL SPRAY 50 MCG/SPRY 120 SPRAY/16 GM NASL SCH ×2 (09:13→21:38)
--- NOTE | 2017-10-14 18:04 | PDOC PROGRESS REPORT ---
Subjective Progress Note for:: 10/14/17 Subjective:: Patient is resting comfortably in bed. Participate with therapy. No issues overnight Reason For Visit: STATUS POST NAILING OF LEFT HIP FRACTURE Physical Exam Vital Signs: Temp Pulse Resp BP Pulse Ox 36.8 C 82 16 122/50 L 94 10/14/17 16:00 10/14/17 16:00 10/14/17 16:00 10/14/17 16:00 10/14/17 16:00 Intake & Output 10/13/17 10/14/17 10/15/17 06:59 06:59 06:59 Intake Total 4486 720 900 Output Total 5254 006 4524 Balance 3246 420 -200 Weight 57.6 kg 57.2 kg Adult Front & Back Image: 1 - Dressings with mild bloody drainage. Neurovascular intact distally with soft calves and negative Chris sign Results Laboratory Results: 10/14/17 05:48 10/13/17 06:40 10/13/17 10/14/17 20:56 05:48 WBC 7.3 7.1 RBC 3.28 L 3.43 L Hgb 9.9 L D 10.4 L Hct 28.3 L 29.6 L MCV 87 87 MCH 30.3 30.3 MCHC 35.1 35.0 RDW 14.3 H 14.6 H Plt Count 118 L 123 L Seg Neutrophils % 88.1 H Lymphocytes % 6.0 L Monocytes % 5.4 Eosinophils % 0.4 Basophils % 0.1 Absolute Neutrophils 6.4 Absolute Lymphocytes 0.4 L Absolute Monocytes 0.4 Absolute Eosinophils 0.0 Absolute Basophils 0.0 10/13/17 06:40 Troponin I 0.019 Impressions: Chest X-Ray 10/10/17 17:44 IMPRESSION: NO ACUTE RADIOGRAPHIC FINDING IN THE CHEST. Hip X-Ray 10/12/17 00:00 IMPRESSION: Intra procedural imaging and fluoro Assessment & Plan - Diagnosis (1) Hip fracture, left Qualifiers: Encounter type: initial encounter Fracture type: closed Qualified Code(s) : S72.002A - Fracture of unspecified part of neck of left femur, initial encounter for closed fracture Is this a current diagnosis for this admission?: Yes - Plan Summary Plan Summary: Patient is 72-year-old female POD #1 from cephalo-medullary nailing of her left intertrochanteric hip fracture. Patient receiving 2 units of blood per acute blood loss anemia second to fracture and surgery. Continue physical therapy Continue pain control Continue DVT prophylaxis Awaiting [facility] facility placement
[2017-10-14] MEDS: DOCUSATE SODIUM 100 MG CAPSULE PO SCH (18:11)
[2017-10-14] MEDS: RIVAROXABAN 10 MG TABLET PO SCH (18:13)
[2017-10-14] MEDS: ACETAMINOPHEN 325 MG TABLET PO PRN (18:13)
[2017-10-14] MEDS: RISPERIDONE 1 MG TABLET PO SCH (18:14)
[2017-10-14] MEDS: ATORVASTATIN CALCIUM 20 MG TABLET PO SCH (21:39)
[2017-10-14] MEDS: MIRTAZAPINE 15 MG TABLET PO SCH (21:39)
--- NOTE | 2017-10-14 22:21 | PDOC PROGRESS REPORT ---
<PILAR HOLLINGSWORTH Renita - Last Filed: 10/14/17 22:13> Subjective Progress Note for:: 10/14/17 Subjective:: The patient is a 72-year-old female with a past medical history of schizophrenia and hypertension who was admitted 10/10/18 for left hip fracture sustained during a mechanical fall. POD#2 Cephalo-medullary nailing left hip fracture. The patient was seen this morning on rounds. She is A&O x 3. Complains of mild hip pain with physical therapy but states her pain is tolerable. Reason For Visit: STATUS POST NAILING OF LEFT HIP FRACTURE Physical Exam Vital Signs: Temp Pulse Resp BP Pulse Ox 98.5 F 83 14 143/61 H 97 10/14/17 19:12 10/14/17 19:12 10/14/17 19:12 10/14/17 19:12 10/14/17 19:12 Intake & Output 10/13/17 10/14/17 10/15/17 06:59 06:59 06:59 Intake Total 4486 720 900 Output Total 6585 013 0384 Balance 3246 420 -200 Weight 57.6 kg 57.2 kg General appearance: PRESENT: no acute distress Head exam: PRESENT: atraumatic Eye exam: PRESENT: conjunctiva pink, PERRLA Mouth exam: PRESENT: moist Teeth exam: PRESENT: poor dentation, other - dentures Neck exam: PRESENT: full ROM. ABSENT: JVD Respiratory exam: PRESENT: clear to auscultation milvia, symmetrical, unlabored Cardiovascular exam: PRESENT: +S1, +S2 Pulses: PRESENT: normal radial pulses, normal dorsalis pedis pul Vascular exam: PRESENT: pallor GI/Abdominal exam: PRESENT: normal bowel sounds, soft. ABSENT: distended, tenderness Rectal exam: PRESENT: deferred Extremities exam: ABSENT: full ROM, joint swelling, pedal edema Musculoskeletal exam: PRESENT: ambulatory - with assistance, full ROM Neurological exam: PRESENT: alert, awake, oriented to person, oriented to place , oriented to time, oriented to situation Psychiatric exam: PRESENT: appropriate affect Skin exam: PRESENT: dry, intact, pallor, warm Results Laboratory Results: 10/14/17 05:48 10/13/17 06:40 10/14/17 05:48 WBC 7.1 RBC 3.43 L Hgb 10.4 L Hct 29.6 L MCV 87 MCH 30.3 MCHC 35.0 RDW 14.6 H Plt Count 123 L 10/13/17 06:40 Troponin I 0.019 Impressions: Chest X-Ray 10/10/17 17:44 IMPRESSION: NO ACUTE RADIOGRAPHIC FINDING IN THE CHEST. Hip X-Ray 10/12/17 00:00 IMPRESSION: Intra procedural imaging and fluoro Status: Imported from PACS Assessment & Plan - Diagnosis (1) Hip fracture, left QualifierTitle: Encounter type: initial encounter Fracture type: closed Qualified Code(s): S72.002A - Fracture of unspecified part of neck of left femur, initial encounter for closed fracture Is this a current diagnosis for this admission?: Yes Plan: POD#2 Cephalo-medullary nailing left hip fracture. Plan per Oto Anticipate acute rehab following d/c from [facility] Discharge planning aware (2) Anemia QualifierTitle: Anemia type: unspecified type Qualified Code(s): D64.9 - Anemia, unspecified Is this a current diagnosis for this admission?: Yes Plan: Resolved. Postoperative anemia Hgb dropped from 9-->7.5 yesterday. Transfused 2UPRBC. Hgb 9.9 today. No signs of active bleeding - denies vomiting, no bloody stool Continue to monitor daily CBCs, if stabilized on tomorrow's lab work, consider transfer to acute rehab (3) Hypertension QualifierTitle: Hypertension type: essential hypertension Qualified Code( s): I10 - Essential (primary) hypertension Is this a current diagnosis for this admission?: Yes Plan: History of HTN Resume home medications (4) Leukocytosis QualifierTitle: Leukocytosis type: bandemia Qualified Code(s): D72.825 - Bandemia Is this a current diagnosis for this admission?: Yes Plan: Resolved Secondary to hip fracture (5) Schizophrenia Is this a current diagnosis for this admission?: Yes Plan: History of Schizophrenia Continue home medications - Time Time Spent with patient: 15-24 minutes Medications reviewed and adjusted accordingly: Yes Anticipated discharge: Acute Rehab Within: within 48 hours - Inpatient Certification Based on my medical assessment, after consideration of the patient's comorbidities, presenting symptoms, or acuity I expect that the services needed warrant INPATIENT care.: Yes I certify that my determination is in accordance with my understanding of Medicare's requirements for reasonable and necessary INPATIENT services [42 CFR 412.3e].: Yes <SAUNDRA JULIO M - Last Filed: 10/27/17 15:38> Subjective Reason For Visit: STATUS POST NAILING OF LEFT HIP FRACTURE Physical Exam Vital Signs: Temp Pulse Resp BP Pulse Ox 98.8 F 76 18 129/59 H 93 10/21/17 15:36 10/21/17 15:36 10/21/17 15:36 10/21/17 15:36 10/21/17 15:36 Results Laboratory Results: 10/21/17 05:28 10/21/17 05:28 10/13/17 06:40 Troponin I 0.019 Impressions: Chest X-Ray 10/10/17 17:44 IMPRESSION: NO ACUTE RADIOGRAPHIC FINDING IN THE CHEST. Hip X-Ray 10/12/17 00:00 IMPRESSION: Intra procedural imaging and fluoro Provider Note Provider Note: I have discussed this patient in detail with SILVANA Hollingsworth, I am in agreement with her evaluation and plan.
[2017-10-15 05:00] LABS: HEMATOCRIT 29.2 % (36.0-47.0); HEMOGLOBIN 10.3 g/dL (12.0-15.5); MEAN CORPUSCULAR HEMOGLOBIN 30.3 pg (27.0-33.4); MEAN CORPUSCULAR HGB CONC 35.4 g/dL (32.0-36.0); MEAN CORPUSCULAR VOLUME 86 fl (80-97); PLATELET COUNT 139 10^3/uL (150-450); RED BLOOD COUNT 3.41 10^6/uL (3.72-5.28); RED CELL DISTRIBUTION WIDTH 14.6 % (11.5-14.0); WHITE BLOOD COUNT 6.9 10^3/uL (4.0-10.5)
[2017-10-15] MEDS: LANSOPRAZOLE 15 MG TAB.RAP.DR PO SCH ×2 (08:31→17:53)
[2017-10-15] MEDS: SENNOSIDES/DOCUSATE 8.6-50 MG 1 EACH TABLET PO SCH ×2 (10:27→17:51)
[2017-10-15] MEDS: DOCUSATE SODIUM 100 MG CAPSULE PO SCH ×2 (10:27→17:50)
[2017-10-15] MEDS: METOPROLOL SUCCINATE 50 MG TAB.SR.24H PO SCH (10:45)
[2017-10-15] MEDS: FLUTICASONE NASAL SPRAY 50 MCG/SPRY 120 SPRAY/16 GM NASL SCH ×2 (10:45→22:50)
[2017-10-15] MEDS: PRENATAL VITAMIN W DHA CAPSULE PO SCH (10:45)
[2017-10-15] MEDS: BENZTROPINE MESYLATE 1 MG TABLET PO SCH ×2 (10:45→17:54)
[2017-10-15] MEDS: AMLODIPINE BESYLATE 10 MG TABLET PO SCH (10:46)
[2017-10-15] MEDS: NICOTINE 21 MG/24 HR PATCH.TD24 TD SCH (10:46)
--- NOTE | 2017-10-15 14:28 | PDOC PROGRESS REPORT ---
Subjective Progress Note for:: 10/15/17 Subjective:: Patient states the pain is better controlled today. No issues overnight Reason For Visit: STATUS POST NAILING OF LEFT HIP FRACTURE Physical Exam Vital Signs: Temp Pulse Resp BP Pulse Ox 36.9 C 98 16 146/62 H 98 10/15/17 12:00 10/15/17 12:00 10/15/17 12:00 10/15/17 12:00 10/15/17 12:00 Intake & Output 10/14/17 10/15/17 10/16/17 06:59 06:59 06:59 Intake Total 720 1250 Output Total 300 1700 Balance 420 -450 Weight 57.2 kg 57.9 kg Results Laboratory Results: 10/15/17 04:52 10/13/17 06:40 10/15/17 04:52 WBC 6.9 RBC 3.41 L Hgb 10.3 L Hct 29.2 L MCV 86 MCH 30.3 MCHC 35.4 RDW 14.6 H Plt Count 139 L 10/13/17 06:40 Troponin I 0.019 Impressions: Chest X-Ray 10/10/17 17:44 IMPRESSION: NO ACUTE RADIOGRAPHIC FINDING IN THE CHEST. Hip X-Ray 10/12/17 00:00 IMPRESSION: Intra procedural imaging and fluoro Assessment & Plan - Diagnosis (1) Hip fracture, left Qualifiers: Encounter type: initial encounter Fracture type: closed Qualified Code(s) : S72.002A - Fracture of unspecified part of neck of left femur, initial encounter for closed fracture Is this a current diagnosis for this admission?: Yes - Plan Summary Plan Summary: Patient is 72 POD #4 from Left hip nailing. Continue physical therapy Continue pain control Continue DVT prophylaxis Awaiting [facility] facility placement
--- NOTE | 2017-10-15 17:03 | PDOC PROGRESS REPORT ---
<HOLLINGSWORTHPILAR A - Last Filed: 10/15/17 17:00> Subjective Progress Note for:: 10/15/17 Subjective:: The patient is a 72-year-old female with a past medical history of schizophrenia and hypertension who was admitted 10/10/18 for left hip fracture sustained during a mechanical fall. POD#3 Cephalo-medullary nailing left hip fracture. The patient was seen this morning on rounds. She is A&O x 3. Complains of mild hip pain with physical therapy but states her pain is tolerable. Awaiting transfer to SNF. Reason For Visit: STATUS POST NAILING OF LEFT HIP FRACTURE Physical Exam Vital Signs: Temp Pulse Resp BP Pulse Ox 98.6 F 87 16 137/61 H 98 10/15/17 15:58 10/15/17 15:58 10/15/17 15:58 10/15/17 15:58 10/15/17 15:58 Intake & Output 10/14/17 10/15/17 10/16/17 06:59 06:59 06:59 Intake Total 720 1250 384 Output Total 300 1700 500 Balance 420 -450 -116 Weight 57.2 kg 57.9 kg General appearance: PRESENT: no acute distress, well-developed, well-nourished Eye exam: PRESENT: conjunctiva pink, PERRLA Mouth exam: PRESENT: moist Teeth exam: PRESENT: poor dentation, other - dentures Neck exam: PRESENT: full ROM Respiratory exam: PRESENT: symmetrical, unlabored Cardiovascular exam: PRESENT: RRR Pulses: PRESENT: normal radial pulses, normal dorsalis pedis pul GI/Abdominal exam: PRESENT: normal bowel sounds, soft. ABSENT: tenderness Rectal exam: PRESENT: deferred Extremities exam: ABSENT: full ROM, joint swelling, pedal edema Musculoskeletal exam: PRESENT: ambulatory - with assistance. ABSENT: full ROM Neurological exam: PRESENT: alert, awake, oriented to person, oriented to place , oriented to time, oriented to situation Psychiatric exam: PRESENT: appropriate affect Skin exam: PRESENT: dry, intact, warm Results Laboratory Results: 10/15/17 04:52 10/13/17 06:40 10/15/17 04:52 WBC 6.9 RBC 3.41 L Hgb 10.3 L Hct 29.2 L MCV 86 MCH 30.3 MCHC 35.4 RDW 14.6 H Plt Count 139 L 10/13/17 06:40 Troponin I 0.019 Impressions: Chest X-Ray 10/10/17 17:44 IMPRESSION: NO ACUTE RADIOGRAPHIC FINDING IN THE CHEST. Hip X-Ray 10/12/17 00:00 IMPRESSION: Intra procedural imaging and fluoro Status: Imported from PACS Assessment & Plan - Diagnosis (1) Hip fracture, left QualifierTitle: Encounter type: initial encounter Fracture type: closed Qualified Code(s): S72.002A - Fracture of unspecified part of neck of left femur, initial encounter for closed fracture Is this a current diagnosis for this admission?: Yes Plan: POD#3 Cephalo-medullary nailing left hip fracture. Plan per Othro Anticipate acute rehab following d/c from [facility] Discharge planning aware (2) Anemia QualifierTitle: Anemia type: unspecified type Qualified Code(s): D64.9 - Anemia, unspecified Is this a current diagnosis for this admission?: Yes Plan: Resolved. Postoperative anemia Hgb dropped from 9-->7.5 on POD#1. Transfused 2UPRBC. Hgb stabilized > 10 for greater than 48hrs. No signs of active bleeding - denies vomiting, no bloody stool Continue to monitor daily CBCs (3) Hypertension QualifierTitle: Hypertension type: essential hypertension Qualified Code( s): I10 - Essential (primary) hypertension Is this a current diagnosis for this admission?: Yes Plan: History of HTN Resume home medications (4) Leukocytosis QualifierTitle: Leukocytosis type: bandemia Qualified Code(s): D72.825 - Bandemia Is this a current diagnosis for this admission?: Yes Plan: Resolved Secondary to hip fracture (5) Schizophrenia Is this a current diagnosis for this admission?: Yes Plan: History of Schizophrenia Continue home medications - Time Time Spent with patient: 15-24 minutes Medications reviewed and adjusted accordingly: Yes Anticipated discharge: SNF Within: within 24 hours - Inpatient Certification Based on my medical assessment, after consideration of the patient's comorbidities, presenting symptoms, or acuity I expect that the services needed warrant INPATIENT care.: Yes I certify that my determination is in accordance with my understanding of Medicare's requirements for reasonable and necessary INPATIENT services [42 CFR 412.3e].: Yes Medical Necessity: Risk of Complication if Not Cared For in Hospital - Plan Summary Plan Summary: AWAITING PLACEMENT TO SNF <SWAYZE,SAUNDRA M - Last Filed: 10/27/17 15:41> Subjective Reason For Visit: STATUS POST NAILING OF LEFT HIP FRACTURE Physical Exam Vital Signs: Temp Pulse Resp BP Pulse Ox 98.8 F 76 18 129/59 H 93 10/21/17 15:36 10/21/17 15:36 10/21/17 15:36 10/21/17 15:36 10/21/17 15:36 Results Laboratory Results: 10/21/17 05:28 10/21/17 05:28 10/13/17 06:40 Troponin I 0.019 Impressions: Chest X-Ray 10/10/17 17:44 IMPRESSION: NO ACUTE RADIOGRAPHIC FINDING IN THE CHEST. Hip X-Ray 10/12/17 00:00 IMPRESSION: Intra procedural imaging and fluoro Provider Note Provider Note: I have discussed this patient with SILVANA Hollingsworth. I am in agreement with her evaluation and plan.
[2017-10-15] MEDS: RISPERIDONE 1 MG TABLET PO SCH (17:54)
[2017-10-15] MEDS: RIVAROXABAN 10 MG TABLET PO SCH (17:54)
[2017-10-15] MEDS: MIRTAZAPINE 15 MG TABLET PO SCH (22:50)
[2017-10-15] MEDS: ATORVASTATIN CALCIUM 20 MG TABLET PO SCH (22:50)
[2017-10-16] MEDS: DOCUSATE SODIUM 100 MG CAPSULE PO SCH ×2 (10:25→17:12)
[2017-10-16] MEDS: SENNOSIDES/DOCUSATE 8.6-50 MG 1 EACH TABLET PO SCH ×2 (10:26→17:13)
[2017-10-16] MEDS: AMLODIPINE BESYLATE 10 MG TABLET PO SCH (10:32)
[2017-10-16] MEDS: BENZTROPINE MESYLATE 1 MG TABLET PO SCH ×2 (10:32→17:37)
[2017-10-16] MEDS: METOPROLOL SUCCINATE 50 MG TAB.SR.24H PO SCH (10:32)
[2017-10-16] MEDS: PRENATAL VITAMIN W DHA CAPSULE PO SCH (10:32)
[2017-10-16] MEDS: NICOTINE 21 MG/24 HR PATCH.TD24 TD SCH (10:32)
[2017-10-16] MEDS: LANSOPRAZOLE 15 MG TAB.RAP.DR PO SCH ×2 (10:32→17:37)
[2017-10-16] MEDS: FLUTICASONE NASAL SPRAY 50 MCG/SPRY 120 SPRAY/16 GM NASL SCH ×2 (10:33→21:29)
--- NOTE | 2017-10-16 14:06 | PDOC PROGRESS REPORT ---
Subjective Progress Note for:: 10/16/17 Subjective:: Patient resting comfortably in bed. No issues overnight Reason For Visit: STATUS POST NAILING OF LEFT HIP FRACTURE Physical Exam Vital Signs: Temp Pulse Resp BP Pulse Ox 37.3 C 88 17 148/66 H 94 10/16/17 11:34 10/16/17 11:34 10/16/17 11:34 10/16/17 11:34 10/16/17 11:34 Intake & Output 10/15/17 10/16/17 10/17/17 06:59 06:59 06:59 Intake Total 1250 970 Output Total 1700 1200 Balance -450 -230 Weight 57.9 kg 67.1 kg Adult Front & Back Image: 1 - Dressings are dry clean and intact with minimal bloody drainage. Patient is neurovascular intact distally with negative Homans sign. Results Laboratory Results: 10/15/17 04:52 10/13/17 06:40 10/13/17 06:40 Troponin I 0.019 Impressions: Chest X-Ray 10/10/17 17:44 IMPRESSION: NO ACUTE RADIOGRAPHIC FINDING IN THE CHEST. Hip X-Ray 10/12/17 00:00 IMPRESSION: Intra procedural imaging and fluoro Assessment & Plan - Diagnosis (1) Hip fracture, left Qualifiers: Encounter type: initial encounter Fracture type: closed Qualified Code(s) : S72.002A - Fracture of unspecified part of neck of left femur, initial encounter for closed fracture Is this a current diagnosis for this admission?: Yes - Plan Summary Plan Summary: Patient is 72-year-old female POD #4 from left hip nailing. Continue physical therapy Continue pain control Continue DVT prophylaxis Awaiting care home facility placement
[2017-10-16] MEDS: RISPERIDONE 1 MG TABLET PO SCH (17:37)
[2017-10-16] MEDS: RIVAROXABAN 10 MG TABLET PO SCH (17:37)
--- NOTE | 2017-10-16 18:16 | PDOC PROGRESS REPORT ---
<PILAR HOLLINGSWORTH A - Last Filed: 10/16/17 18:14> Subjective Progress Note for:: 10/16/17 Subjective:: The patient is a 72-year-old female with a past medical history of schizophrenia and hypertension who was admitted 10/10/18 for left hip fracture sustained during a mechanical fall. Post-op Cephalo-medullary nailing left hip fracture. The patient was seen this morning on rounds. She is A&O x 3. Complains of mild hip pain with physical therapy but states her pain is tolerable. Awaiting transfer to SNF, must have evaluation by facility due to history of schizophrenia. No change to treatment plan. Reason For Visit: STATUS POST NAILING OF LEFT HIP FRACTURE Physical Exam Vital Signs: Temp Pulse Resp BP Pulse Ox 98.9 F 80 17 138/55 H 94 10/16/17 15:42 10/16/17 15:42 10/16/17 15:42 10/16/17 15:42 10/16/17 15:42 Intake & Output 10/15/17 10/16/17 10/17/17 06:59 06:59 06:59 Intake Total 1250 970 336 Output Total 1700 1200 500 Balance -450 -230 -164 Weight 57.9 kg 67.1 kg General appearance: PRESENT: thin Head exam: PRESENT: atraumatic Eye exam: PRESENT: conjunctiva pink, PERRLA Mouth exam: PRESENT: moist, tongue midline Teeth exam: PRESENT: poor dentation Neck exam: PRESENT: full ROM Respiratory exam: PRESENT: symmetrical, unlabored Cardiovascular exam: PRESENT: +S1, +S2 Pulses: PRESENT: normal radial pulses, normal dorsalis pedis pul GI/Abdominal exam: PRESENT: normal bowel sounds, soft. ABSENT: tenderness Rectal exam: PRESENT: deferred Extremities exam: ABSENT: full ROM, joint swelling, pedal edema Musculoskeletal exam: PRESENT: ambulatory - with assistance. ABSENT: full ROM Neurological exam: PRESENT: alert, awake, oriented to person, oriented to place , oriented to time, oriented to situation Psychiatric exam: PRESENT: appropriate affect Skin exam: PRESENT: dry, intact, normal color, warm Results Laboratory Results: 10/15/17 04:52 10/13/17 06:40 10/13/17 06:40 Troponin I 0.019 Impressions: Chest X-Ray 10/10/17 17:44 IMPRESSION: NO ACUTE RADIOGRAPHIC FINDING IN THE CHEST. Hip X-Ray 10/12/17 00:00 IMPRESSION: Intra procedural imaging and fluoro Status: Imported from PACS Assessment & Plan - Diagnosis (1) Hip fracture, left QualifierTitle: Encounter type: initial encounter Fracture type: closed Qualified Code(s): S72.002A - Fracture of unspecified part of neck of left femur, initial encounter for closed fracture Is this a current diagnosis for this admission?: Yes Plan: POD#3 Cephalo-medullary nailing left hip fracture. Plan per Othro Anticipate acute rehab following d/c from [facility] Discharge planning aware (2) Anemia QualifierTitle: Anemia type: unspecified type Qualified Code(s): D64.9 - Anemia, unspecified Is this a current diagnosis for this admission?: Yes Plan: Resolved. Postoperative anemia Hgb dropped from 9-->7.5 on POD#1. Transfused 2UPRBC. Hgb stabilized > 10 for greater than 48hrs. No signs of active bleeding - denies vomiting, no bloody stool Continue to monitor daily CBCs (3) Hypertension QualifierTitle: Hypertension type: essential hypertension Qualified Code( s): I10 - Essential (primary) hypertension Is this a current diagnosis for this admission?: Yes Plan: History of HTN Resume home medications (4) Leukocytosis QualifierTitle: Leukocytosis type: bandemia Qualified Code(s): D72.825 - Bandemia Is this a current diagnosis for this admission?: Yes Plan: Resolved Secondary to hip fracture (5) Schizophrenia Is this a current diagnosis for this admission?: Yes Plan: History of Schizophrenia Continue home medications - Time Time Spent with patient: 15-24 minutes Medications reviewed and adjusted accordingly: Yes Anticipated discharge: SNF - Inpatient Certification Based on my medical assessment, after consideration of the patient's comorbidities, presenting symptoms, or acuity I expect that the services needed warrant INPATIENT care.: Yes I certify that my determination is in accordance with my understanding of Medicare's requirements for reasonable and necessary INPATIENT services [42 CFR 412.3e].: Yes Medical Necessity: Risk of Complication if Not Cared For in Hospital - Plan Summary Plan Summary: AWAITING TRANSFER TO SNF <SAUNDRA JULIO - Last Filed: 10/27/17 15:59> Subjective Reason For Visit: STATUS POST NAILING OF LEFT HIP FRACTURE Physical Exam Vital Signs: Temp Pulse Resp BP Pulse Ox 98.8 F 76 18 129/59 H 93 10/21/17 15:36 10/21/17 15:36 10/21/17 15:36 10/21/17 15:36 10/21/17 15:36 Results Laboratory Results: 10/21/17 05:28 10/21/17 05:28 10/13/17 06:40 Troponin I 0.019 Impressions: Chest X-Ray 10/10/17 17:44 IMPRESSION: NO ACUTE RADIOGRAPHIC FINDING IN THE CHEST. Hip X-Ray 10/12/17 00:00 IMPRESSION: Intra procedural imaging and fluoro Provider Note Provider Note: I have discussed this patient in detail with SILVANA Hollingsworth. I am in agreement with her evaluation and plan.
[2017-10-16] MEDS: ATORVASTATIN CALCIUM 20 MG TABLET PO SCH (21:30)
[2017-10-16] MEDS: MIRTAZAPINE 15 MG TABLET PO SCH (21:30)
[2017-10-17] MEDS: LANSOPRAZOLE 15 MG TAB.RAP.DR PO SCH ×2 (09:36→17:29)
[2017-10-17] MEDS: AMLODIPINE BESYLATE 10 MG TABLET PO SCH (09:36)
[2017-10-17] MEDS: BENZTROPINE MESYLATE 1 MG TABLET PO SCH ×2 (09:36→17:29)
[2017-10-17] MEDS: METOPROLOL SUCCINATE 50 MG TAB.SR.24H PO SCH (09:37)
[2017-10-17] MEDS: PRENATAL VITAMIN W DHA CAPSULE PO SCH (09:37)
[2017-10-17] MEDS: SENNOSIDES/DOCUSATE 8.6-50 MG 1 EACH TABLET PO SCH ×2 (09:37→17:26)
[2017-10-17] MEDS: DOCUSATE SODIUM 100 MG CAPSULE PO SCH ×2 (09:37→17:26)
[2017-10-17] MEDS: NICOTINE 21 MG/24 HR PATCH.TD24 TD SCH (09:38)
[2017-10-17] MEDS: FLUTICASONE NASAL SPRAY 50 MCG/SPRY 120 SPRAY/16 GM NASL SCH ×2 (09:39→22:18)
--- NOTE | 2017-10-17 09:58 | PDOC PROGRESS REPORT ---
<YONNYPILAR Renita - Last Filed: 10/17/17 09:58> Subjective Progress Note for:: 10/17/17 Subjective:: The patient is a 72-year-old female with a past medical history of schizophrenia and hypertension who was admitted 10/10/18 for left hip fracture sustained during a mechanical fall. Post-op Cephalo-medullary nailing left hip fracture. The patient was seen this morning on rounds. She is A&O x 3. Complains of mild hip pain with physical therapy but states her pain is tolerable. Awaiting transfer to SNF, must have evaluation by facility due to history of schizophrenia. No change to treatment plan. Reason For Visit: STATUS POST NAILING OF LEFT HIP FRACTURE Physical Exam Vital Signs: Temp Pulse Resp BP Pulse Ox 98.3 F 86 16 148/60 H 96 10/17/17 07:53 10/17/17 07:53 10/17/17 07:53 10/17/17 07:53 10/17/17 07:53 Intake & Output 10/16/17 10/17/17 10/18/17 06:59 06:59 06:59 Intake Total 970 446 Output Total 1200 950 Balance -230 -504 Weight 67.1 kg 65.6 kg Results Laboratory Results: 10/15/17 04:52 10/13/17 06:40 10/13/17 06:40 Troponin I 0.019 Impressions: Chest X-Ray 10/10/17 17:44 IMPRESSION: NO ACUTE RADIOGRAPHIC FINDING IN THE CHEST. Hip X-Ray 10/12/17 00:00 IMPRESSION: Intra procedural imaging and fluoro Status: Imported from PACS Assessment & Plan - Diagnosis (1) Hip fracture, left QualifierTitle: Encounter type: initial encounter Fracture type: closed Qualified Code(s): S72.002A - Fracture of unspecified part of neck of left femur, initial encounter for closed fracture Is this a current diagnosis for this admission?: Yes Plan: Post-op Cephalo-medullary nailing left hip fracture. Plan per Othro Anticipate acute rehab following d/c from [facility] Discharge planning aware (2) Anemia QualifierTitle: Anemia type: unspecified type Qualified Code(s): D64.9 - Anemia, unspecified Is this a current diagnosis for this admission?: Yes Plan: Resolved. Postoperative anemia Hgb dropped from 9-->7.5 on POD#1. Transfused 2UPRBC. Hgb stabilized > 10 for greater than 48hrs. No signs of active bleeding - denies vomiting, no bloody stool Continue to monitor daily CBCs (3) Hypertension QualifierTitle: Hypertension type: essential hypertension Qualified Code( s): I10 - Essential (primary) hypertension Is this a current diagnosis for this admission?: Yes Plan: History of HTN Resume home medications (4) Leukocytosis QualifierTitle: Leukocytosis type: bandemia Qualified Code(s): D72.825 - Bandemia Is this a current diagnosis for this admission?: Yes Plan: Resolved Secondary to hip fracture (5) Schizophrenia Is this a current diagnosis for this admission?: Yes Plan: History of Schizophrenia Continue home medications - Time Time Spent with patient: 15-24 minutes Medications reviewed and adjusted accordingly: Yes Anticipated discharge: SNF - Inpatient Certification Based on my medical assessment, after consideration of the patient's comorbidities, presenting symptoms, or acuity I expect that the services needed warrant INPATIENT care.: Yes I certify that my determination is in accordance with my understanding of Medicare's requirements for reasonable and necessary INPATIENT services [42 CFR 412.3e].: Yes Medical Necessity: Risk of Complication if Not Cared For in Hospital <SAUNDRA JULIO - Last Filed: 10/27/17 16:00> Subjective Reason For Visit: STATUS POST NAILING OF LEFT HIP FRACTURE Physical Exam Vital Signs: Temp Pulse Resp BP Pulse Ox 98.8 F 76 18 129/59 H 93 10/21/17 15:36 10/21/17 15:36 10/21/17 15:36 10/21/17 15:36 10/21/17 15:36 Results Laboratory Results: 10/21/17 05:28 10/21/17 05:28 10/13/17 06:40 Troponin I 0.019 Impressions: Chest X-Ray 10/10/17 17:44 IMPRESSION: NO ACUTE RADIOGRAPHIC FINDING IN THE CHEST. Hip X-Ray 10/12/17 00:00 IMPRESSION: Intra procedural imaging and fluoro Provider Note Provider Note: I have discussed this patient in detail with SILVANA Hollingsworth. I am in agreement with her evaluation and plan.
[2017-10-17] MEDS: OXYCODONE HCL IR 5 MG TABLET PO PRN ×2 (10:06→22:18)
[2017-10-17] MEDS: RISPERIDONE 1 MG TABLET PO SCH (17:29)
[2017-10-17] MEDS: RIVAROXABAN 10 MG TABLET PO SCH (17:29)
[2017-10-17] MEDS: MIRTAZAPINE 15 MG TABLET PO SCH (22:18)
[2017-10-17] MEDS: ATORVASTATIN CALCIUM 20 MG TABLET PO SCH (22:18)
[2017-10-18] MEDS: LANSOPRAZOLE 15 MG TAB.RAP.DR PO SCH ×2 (08:29→16:28)
[2017-10-18] MEDS: OXYCODONE HCL IR 5 MG TABLET PO PRN (08:30)
[2017-10-18] MEDS: METOPROLOL SUCCINATE 50 MG TAB.SR.24H PO SCH (10:07)
[2017-10-18] MEDS: BENZTROPINE MESYLATE 1 MG TABLET PO SCH ×2 (10:07→17:53)
[2017-10-18] MEDS: AMLODIPINE BESYLATE 10 MG TABLET PO SCH (10:07)
[2017-10-18] MEDS: FLUTICASONE NASAL SPRAY 50 MCG/SPRY 120 SPRAY/16 GM NASL SCH ×2 (10:07→22:19)
[2017-10-18] MEDS: DOCUSATE SODIUM 100 MG CAPSULE PO SCH ×2 (10:07→17:53)
[2017-10-18] MEDS: SENNOSIDES/DOCUSATE 8.6-50 MG 1 EACH TABLET PO SCH ×2 (10:07→17:53)
[2017-10-18] MEDS: PRENATAL VITAMIN W DHA CAPSULE PO SCH (10:07)
[2017-10-18] MEDS: NICOTINE 21 MG/24 HR PATCH.TD24 TD SCH (13:38)
[2017-10-18] MEDS: ACETAMINOPHEN 325 MG TABLET PO PRN (16:28)
[2017-10-18] MEDS: RIVAROXABAN 10 MG TABLET PO SCH (16:28)
[2017-10-18] MEDS: RISPERIDONE 1 MG TABLET PO SCH (17:53)
--- NOTE | 2017-10-18 20:37 | PDOC PROGRESS REPORT ---
Subjective Progress Note for:: 10/18/17 Subjective:: The patient is a 72-year-old female with a past medical history of schizophrenia and hypertension who was admitted 10/10/18 for left hip fracture sustained during a mechanical fall. Post-op Cephalo-medullary nailing left hip fracture. The patient was seen this morning on rounds. She is resting in bed on room air. The patient is A&O x 3. Complains of mild hip pain with physical therapy but states her pain is tolerable. Awaiting transfer to SNF, must have evaluation by facility due to history of schizophrenia. No change to treatment plan. Reason For Visit: STATUS POST NAILING OF LEFT HIP FRACTURE Physical Exam Vital Signs: Temp Pulse Resp BP Pulse Ox 1001.1 F H 88 16 109/50 L 92 10/18/17 16:00 10/18/17 16:00 10/18/17 16:00 10/18/17 16:00 10/18/17 16:00 Intake & Output 10/17/17 10/18/17 10/19/17 06:59 06:59 06:59 Intake Total 446 1210 740 Output Total 950 1200 400 Balance -504 10 340 Weight 65.6 kg 66.2 kg General appearance: PRESENT: thin Head exam: PRESENT: atraumatic Eye exam: PRESENT: conjunctiva pink, PERRLA Mouth exam: PRESENT: moist Teeth exam: PRESENT: poor dentation Neck exam: PRESENT: full ROM Cardiovascular exam: PRESENT: +S1, +S2 Pulses: PRESENT: normal radial pulses, normal dorsalis pedis pul GI/Abdominal exam: PRESENT: normal bowel sounds, soft, tenderness Rectal exam: PRESENT: deferred Extremities exam: ABSENT: full ROM Musculoskeletal exam: PRESENT: ambulatory - with assistance. ABSENT: full ROM Neurological exam: PRESENT: alert, awake, oriented to person, oriented to place , oriented to time, oriented to situation Psychiatric exam: PRESENT: appropriate affect Skin exam: PRESENT: dry, intact, normal color Results Laboratory Results: 10/15/17 04:52 10/13/17 06:40 10/13/17 06:40 Troponin I 0.019 Impressions: Chest X-Ray 10/10/17 17:44 IMPRESSION: NO ACUTE RADIOGRAPHIC FINDING IN THE CHEST. Hip X-Ray 10/12/17 00:00 IMPRESSION: Intra procedural imaging and fluoro Status: Imported from PACS Assessment & Plan - Diagnosis (1) Hip fracture, left Qualifiers: Encounter type: initial encounter Fracture type: closed Qualified Code(s) : S72.002A - Fracture of unspecified part of neck of left femur, initial encounter for closed fracture Is this a current diagnosis for this admission?: Yes Plan: Post-op Cephalo-medullary nailing left hip fracture. Plan per Othro Anticipate acute rehab following d/c from [facility] Discharge planning aware (2) Anemia Qualifiers: Anemia type: unspecified type Qualified Code(s): D64.9 - Anemia, unspecified Is this a current diagnosis for this admission?: Yes Plan: Resolved. Postoperative anemia Hgb dropped from 9-->7.5 on POD#1. Transfused 2UPRBC. Hgb stabilized > 10 for greater than 48hrs. No signs of active bleeding - denies vomiting, no bloody stool Continue to monitor daily CBCs (3) Hypertension Qualifiers: Hypertension type: essential hypertension Qualified Code(s): I10 - Essential (primary) hypertension Is this a current diagnosis for this admission?: Yes Plan: History of HTN Resume home medications (4) Leukocytosis Qualifiers: Leukocytosis type: bandemia Qualified Code(s): D72.825 - Bandemia Is this a current diagnosis for this admission?: Yes Plan: Resolved Secondary to hip fracture (5) Schizophrenia Is this a current diagnosis for this admission?: Yes Plan: History of Schizophrenia Continue home medications - Time Time Spent with patient: 15-24 minutes Medications reviewed and adjusted accordingly: Yes Anticipated discharge: SNF - Inpatient Certification Based on my medical assessment, after consideration of the patient's comorbidities, presenting symptoms, or acuity I expect that the services needed warrant INPATIENT care.: Yes I certify that my determination is in accordance with my understanding of Medicare's requirements for reasonable and necessary INPATIENT services [42 CFR 412.3e].: Yes Medical Necessity: Risk of Complication if Not Cared For in Hospital
[2017-10-18] MEDS: MIRTAZAPINE 15 MG TABLET PO SCH (22:20)
[2017-10-18] MEDS: ATORVASTATIN CALCIUM 20 MG TABLET PO SCH (22:20)
[2017-10-19] MEDS: LANSOPRAZOLE 15 MG TAB.RAP.DR PO SCH ×2 (08:14→17:53)
[2017-10-19] MEDS: AMLODIPINE BESYLATE 10 MG TABLET PO SCH (10:29)
[2017-10-19] MEDS: SENNOSIDES/DOCUSATE 8.6-50 MG 1 EACH TABLET PO SCH ×2 (10:29→17:53)
[2017-10-19] MEDS: DOCUSATE SODIUM 100 MG CAPSULE PO SCH ×2 (10:29→17:53)
[2017-10-19] MEDS: FLUTICASONE NASAL SPRAY 50 MCG/SPRY 120 SPRAY/16 GM NASL SCH (10:30)
[2017-10-19] MEDS: BENZTROPINE MESYLATE 1 MG TABLET PO SCH ×2 (10:30→17:53)
[2017-10-19] MEDS: METOPROLOL SUCCINATE 50 MG TAB.SR.24H PO SCH (10:30)
[2017-10-19] MEDS: NICOTINE 21 MG/24 HR PATCH.TD24 TD SCH (10:30)
[2017-10-19] MEDS: PRENATAL VITAMIN W DHA CAPSULE PO SCH (10:30)
[2017-10-19] MEDS: RISPERIDONE 1 MG TABLET PO SCH (17:53)
[2017-10-19] MEDS: RIVAROXABAN 10 MG TABLET PO SCH (17:53)
--- NOTE | 2017-10-19 23:11 | PDOC PROGRESS REPORT ---
<PILAR HOLLINGSWORTH A - Last Filed: 10/19/17 23:08> Subjective Progress Note for:: 10/19/17 Subjective:: The patient is a 72-year-old female with a past medical history of schizophrenia and hypertension who was admitted 10/10/18 for left hip fracture sustained during a mechanical fall. Post-op Cephalo-medullary nailing left hip fracture. The patient was seen this morning on rounds. She is resting in bed on room air. The patient is A&O x 3. Complains of mild hip pain with physical therapy but states her pain is tolerable. Awaiting transfer to SNF, must have evaluation by facility due to history of schizophrenia. No change to treatment plan. Reason For Visit: STATUS POST NAILING OF LEFT HIP FRACTURE Physical Exam Vital Signs: Temp Pulse Resp BP Pulse Ox 97.6 F 88 14 139/50 H 90 L 10/19/17 19:53 10/19/17 19:53 10/19/17 19:53 10/19/17 19:53 10/19/17 19:53 Intake & Output 10/18/17 10/19/17 10/20/17 06:59 06:59 06:59 Intake Total 1210 1040 592 Output Total 1200 900 725 Balance 10 140 -133 Weight 66.2 kg 67.4 kg General appearance: PRESENT: no acute distress, thin Head exam: PRESENT: atraumatic Eye exam: PRESENT: conjunctiva pink, PERRLA Mouth exam: PRESENT: tongue midline Teeth exam: PRESENT: poor dentation Neck exam: PRESENT: full ROM Respiratory exam: PRESENT: clear to auscultation milvia, symmetrical, unlabored Cardiovascular exam: PRESENT: +S1, +S2 Pulses: PRESENT: normal radial pulses, normal dorsalis pedis pul Vascular exam: PRESENT: pallor GI/Abdominal exam: PRESENT: soft. ABSENT: normal bowel sounds, tenderness Rectal exam: PRESENT: deferred Extremities exam: ABSENT: full ROM Musculoskeletal exam: PRESENT: ambulatory - with assistance, full ROM Neurological exam: PRESENT: alert, awake, oriented to person, oriented to place , oriented to time, oriented to situation Psychiatric exam: PRESENT: appropriate affect Skin exam: PRESENT: dry, intact, pallor, warm Results Laboratory Results: 10/15/17 04:52 10/13/17 06:40 10/13/17 06:40 Troponin I 0.019 Impressions: Chest X-Ray 10/10/17 17:44 IMPRESSION: NO ACUTE RADIOGRAPHIC FINDING IN THE CHEST. Hip X-Ray 10/12/17 00:00 IMPRESSION: Intra procedural imaging and fluoro Status: Imported from PACS Assessment & Plan - Diagnosis (1) Hip fracture, left QualifierTitle: Encounter type: initial encounter Fracture type: closed Qualified Code(s): S72.002A - Fracture of unspecified part of neck of left femur, initial encounter for closed fracture Is this a current diagnosis for this admission?: Yes Plan: Post-op Cephalo-medullary nailing left hip fracture. Plan per Othro Anticipate acute rehab following d/c from [facility] Discharge planning aware (2) Anemia QualifierTitle: Anemia type: unspecified type Qualified Code(s): D64.9 - Anemia, unspecified Is this a current diagnosis for this admission?: Yes Plan: Resolved. Postoperative anemia Hgb dropped from 9-->7.5 on POD#1. Transfused 2UPRBC. Hgb stabilized > 10 for greater than 48hrs. No signs of active bleeding - denies vomiting, no bloody stool Continue to monitor daily CBCs (3) Hypertension QualifierTitle: Hypertension type: essential hypertension Qualified Code( s): I10 - Essential (primary) hypertension Is this a current diagnosis for this admission?: Yes Plan: History of HTN Resume home medications (4) Leukocytosis QualifierTitle: Leukocytosis type: bandemia Qualified Code(s): D72.825 - Bandemia Is this a current diagnosis for this admission?: Yes Plan: Resolved Secondary to hip fracture (5) Schizophrenia Is this a current diagnosis for this admission?: Yes Plan: History of Schizophrenia Continue home medications - Time Time Spent with patient: 15-24 minutes Medications reviewed and adjusted accordingly: Yes Anticipated discharge: SNF - Inpatient Certification Based on my medical assessment, after consideration of the patient's comorbidities, presenting symptoms, or acuity I expect that the services needed warrant INPATIENT care.: Yes I certify that my determination is in accordance with my understanding of Medicare's requirements for reasonable and necessary INPATIENT services [42 CFR 412.3e].: Yes Medical Necessity: Risk of Complication if Not Cared For in Hospital - Plan Summary Plan Summary: AWAITING PLACEMENT IN SNF. PATIENT SHOULD ONLY REQUIRE 30 DAYS OR LESS OF SNF SERVICES. <SAUNDRA JULIO M - Last Filed: 10/27/17 16:03> Subjective Reason For Visit: STATUS POST NAILING OF LEFT HIP FRACTURE Physical Exam Vital Signs: Temp Pulse Resp BP Pulse Ox 98.8 F 76 18 129/59 H 93 10/21/17 15:36 10/21/17 15:36 10/21/17 15:36 10/21/17 15:36 10/21/17 15:36 Results Laboratory Results: 10/21/17 05:28 10/21/17 05:28 10/13/17 06:40 Troponin I 0.019 Impressions: Chest X-Ray 10/10/17 17:44 IMPRESSION: NO ACUTE RADIOGRAPHIC FINDING IN THE CHEST. Hip X-Ray 10/12/17 00:00 IMPRESSION: Intra procedural imaging and fluoro Provider Note Provider Note: I have discussed this patient in detail with SILVANA Hollingsworth. I am in agreement with her evaluation and plans.
[2017-10-20] MEDS: FLUTICASONE NASAL SPRAY 50 MCG/SPRY 120 SPRAY/16 GM NASL SCH ×3 (00:08→21:35)
[2017-10-20] MEDS: MIRTAZAPINE 15 MG TABLET PO SCH ×2 (00:08→21:35)
[2017-10-20] MEDS: ATORVASTATIN CALCIUM 20 MG TABLET PO SCH ×2 (00:08→21:35)
[2017-10-20] MEDS: LANSOPRAZOLE 15 MG TAB.RAP.DR PO SCH ×2 (08:28→17:29)
[2017-10-20] MEDS: AMLODIPINE BESYLATE 10 MG TABLET PO SCH (09:13)
[2017-10-20] MEDS: DOCUSATE SODIUM 100 MG CAPSULE PO SCH ×2 (09:13→17:22)
[2017-10-20] MEDS: SENNOSIDES/DOCUSATE 8.6-50 MG 1 EACH TABLET PO SCH ×2 (09:13→17:24)
[2017-10-20] MEDS: BENZTROPINE MESYLATE 1 MG TABLET PO SCH ×2 (09:13→17:29)
[2017-10-20] MEDS: METOPROLOL SUCCINATE 50 MG TAB.SR.24H PO SCH (09:13)
[2017-10-20] MEDS: PRENATAL VITAMIN W DHA CAPSULE PO SCH (09:13)
[2017-10-20] MEDS: NICOTINE 21 MG/24 HR PATCH.TD24 TD SCH (09:16)
--- NOTE | 2017-10-20 17:13 | PDOC PROGRESS REPORT ---
Subjective Progress Note for:: 10/20/17 Subjective:: The patient is a 72-year-old female with a past medical history of schizophrenia and hypertension who was admitted 10/10/18 for left hip fracture sustained during a mechanical fall. The patient is seen on morning rounds. She is resting in bed comfortably on room air having just completed her breakfast. She tells me that she is feeling well today but does report mild hip pain, especially with movement. She denies chest pain, dyspnea, cough, abdominal pain, nausea and vomiting. She has no questions or concerns at this time. No concerns per nursing. Awaiting review of [facility] for acceptance to SNF for short term rehab. Reason For Visit: STATUS POST NAILING OF LEFT HIP FRACTURE Physical Exam Vital Signs: Temp Pulse Resp BP Pulse Ox 98.4 F 79 17 114/50 L 95 10/20/17 15:12 10/20/17 15:12 10/20/17 15:12 10/20/17 15:12 10/20/17 15:12 Intake & Output 10/19/17 10/20/17 10/21/17 06:59 06:59 06:59 Intake Total 1040 592 625 Output Total 900 1925 525 Balance 140 -1333 100 Weight 67.4 kg 67.3 kg General appearance: PRESENT: no acute distress, well-developed, well-nourished Head exam: PRESENT: atraumatic, normocephalic Eye exam: PRESENT: conjunctiva pink, EOMI, PERRLA. ABSENT: scleral icterus Ear exam: PRESENT: normal external ear exam Mouth exam: PRESENT: moist, tongue midline Neck exam: ABSENT: carotid bruit, JVD, lymphadenopathy, thyromegaly Respiratory exam: PRESENT: clear to auscultation milvia, symmetrical, unlabored. ABSENT: rales, rhonchi, wheezes Cardiovascular exam: PRESENT: RRR, +S1, +S2. ABSENT: diastolic murmur, rubs, systolic murmur Pulses: PRESENT: normal dorsalis pedis pul Vascular exam: PRESENT: normal capillary refill GI/Abdominal exam: PRESENT: normal bowel sounds, soft. ABSENT: distended, guarding, mass, organolmegaly, rebound, tenderness Rectal exam: PRESENT: deferred Extremities exam: PRESENT: full ROM, tenderness - LLE, +1 edema - Lt thigh; no calf or pedal edema. ABSENT: calf tenderness, clubbing, pedal edema Musculoskeletal exam: PRESENT: ambulatory - Side-steps with assistance Neurological exam: PRESENT: alert, awake, oriented to person, oriented to place , oriented to time, oriented to situation, CN II-XII grossly intact, other - intermittently pleasantly confused or forgetful; A&Ox3 at present. ABSENT: motor sensory deficit Psychiatric exam: PRESENT: appropriate affect, normal mood. ABSENT: homicidal ideation, suicidal ideation Skin exam: PRESENT: dry, warm, other - slight ecchymosis in all drainage at OpSite to LLE; slight edema noted to left thigh. ABSENT: cyanosis, rash Results Laboratory Results: 10/15/17 04:52 10/13/17 06:40 10/13/17 06:40 Troponin I 0.019 Impressions: Chest X-Ray 10/10/17 17:44 IMPRESSION: NO ACUTE RADIOGRAPHIC FINDING IN THE CHEST. Hip X-Ray 10/12/17 00:00 IMPRESSION: Intra procedural imaging and fluoro Assessment & Plan - Diagnosis (1) Hip fracture, left Qualifiers: Encounter type: initial encounter Fracture type: closed Qualified Code(s) : S72.002A - Fracture of unspecified part of neck of left femur, initial encounter for closed fracture Is this a current diagnosis for this admission?: Yes Plan: Primary plan per orthopedics; now s/p cephalo-medullary nailing repair by Dr. Tg Hernandez. Cardiology provided cardiac clearance. Analgesics and antiemetics as needed. Xarelto for DVT prophylaxis. Anticipate acute rehabilitation at discharge; discharge planning is consulted. (2) Hypertension Qualifiers: Hypertension type: essential hypertension Qualified Code(s): I10 - Essential (primary) hypertension Is this a current diagnosis for this admission?: Yes Plan: Normotensive at present. The patient's home medication regimen is continued. (3) Schizophrenia Is this a current diagnosis for this admission?: Yes Plan: Stable; pasarr has been completed. The patient's home medications are continued. (4) Anemia Qualifiers: Anemia type: unspecified type Qualified Code(s): D64.9 - Anemia, unspecified Is this a current diagnosis for this admission?: Yes Plan: Hgb of 13.7 on admission; trended down to 7.5 on POD #1. Now status post 2 units packed red blood cells. Hemoglobin has stabilized greater than 10 for greater than 48 hours. No signs of active bleeding. We will continue to monitor daily CBCs. (5) Leukocytosis Qualifiers: Leukocytosis type: bandemia Qualified Code(s): D72.825 - Bandemia Is this a current diagnosis for this admission?: Yes Plan: Resolved. Likely related to hip fracture. - Time Time Spent with patient: 15-24 minutes Medications reviewed and adjusted accordingly: Yes Anticipated discharge: Acute Rehab Within: when bed available - Inpatient Certification I certify that my determination is in accordance with my understanding of Medicare's requirements for reasonable and necessary INPATIENT services [42 CFR 412.3e].: Yes
[2017-10-20] MEDS: RISPERIDONE 1 MG TABLET PO SCH (17:28)
[2017-10-20] MEDS: RIVAROXABAN 10 MG TABLET PO SCH (17:29)
[2017-10-21 06:54] LABS: HEMATOCRIT 27.8 % (36.0-47.0); HEMOGLOBIN 9.7 g/dL (12.0-15.5); MEAN CORPUSCULAR HEMOGLOBIN 30.3 pg (27.0-33.4); MEAN CORPUSCULAR HGB CONC 34.9 g/dL (32.0-36.0); MEAN CORPUSCULAR VOLUME 87 fl (80-97); PLATELET COUNT 259 10^3/uL (150-450); RED CELL DISTRIBUTION WIDTH 14.6 % (11.5-14.0); WHITE BLOOD COUNT 8.4 10^3/uL (4.0-10.5)
[2017-10-21 07:13] LABS: ANION GAP 11 (5-19); BLOOD UREA NITROGEN 22 mg/dL (7-20); CARBON DIOXIDE 22 mmol/L (22-30); CHLORIDE 108 mmol/L (98-107); GLUCOSE 84 mg/dL (75-110); POTASSIUM 4.3 mmol/L (3.6-5.0); SODIUM 140.5 mmol/L (137-145)
[2017-10-21 07:25] LABS: CALCIUM 7.2 mg/dL (8.4-10.2)
[2017-10-21] MEDS: PRENATAL VITAMIN W DHA CAPSULE PO SCH (10:45)
[2017-10-21] MEDS: LANSOPRAZOLE 15 MG TAB.RAP.DR PO SCH (10:45)
[2017-10-21] MEDS: METOPROLOL SUCCINATE 50 MG TAB.SR.24H PO SCH (10:46)
[2017-10-21] MEDS: BENZTROPINE MESYLATE 1 MG TABLET PO SCH (10:46)
[2017-10-21] MEDS: SENNOSIDES/DOCUSATE 8.6-50 MG 1 EACH TABLET PO SCH (10:46)
[2017-10-21] MEDS: AMLODIPINE BESYLATE 10 MG TABLET PO SCH (10:46)
[2017-10-21] MEDS: NICOTINE 21 MG/24 HR PATCH.TD24 TD SCH (10:48)
[2017-10-21] MEDS: FLUTICASONE NASAL SPRAY 50 MCG/SPRY 120 SPRAY/16 GM NASL SCH (10:49)
[2017-10-21] MEDS: DOCUSATE SODIUM 100 MG CAPSULE PO SCH (10:49)
[2017-10-21] MEDS ORDERED: TAMSULOSIN HCL 0.4 MG CAP.SR.24H PO ONE (12:30)
--- NOTE | 2017-10-21 12:39 | PDOC TRANSFER SUMMARY ---
General - Admit/Disc Date/PCP Admission Date/Primary Care Provider: 10/10/17 20:48 AMANDA ARAGON MD Discharge Date: 10/21/17 - Discharge Diagnosis (1) Hip fracture, left Is this a current diagnosis for this admission?: Yes Summary: Secondary to mechanical fall at home; now status post cephalo-medullary nailing repair by Dr. Tg Hernandez on 10/12/17. She was placed on Xarelto for DVT prophylaxis; has completed course. She is discharged to SNF for short-term rehabilitation. To follow-up with Dr. Tg Hernandez on 11/02/17. (2) Hypertension Is this a current diagnosis for this admission?: Yes Summary: Normotensive on patient's home medication regimen. (3) Schizophrenia Is this a current diagnosis for this admission?: Yes Summary: Stable on patient's home medication regimen. (4) Anemia Is this a current diagnosis for this admission?: Yes Summary: The patient was admitted with a hemoglobin of 13.7; trended down to 7.5 on POD # 1. She was transfused 2 units packed red blood cells postoperatively and has maintained a hemoglobin greater than 9.7 since that time. No evidence of active bleeding. Recommend follow-up CBC in 5-7 days. (5) Leukocytosis Is this a current diagnosis for this admission?: Yes Summary: Resolved; secondary to hip fracture. (6) Urinary retention Is this a current diagnosis for this admission?: Yes Summary: The patient experienced urinary retention postoperatively. Her Reyes catheter was removed, she was monitor 24 hours with noted acute urinary retention. The Reyes catheter was replaced and 2 days later again attempted to discontinue. She was monitored 24 hours with bladder scans and continued to require straight catheters for relief of acute urinary retention. The Reyes catheter has been reinserted. Patient has been started on Flomax. Recommend she follow-up with urology in 10-14 days. - Additional Information Resuscitation Status: Full Code Prescriptions: Benztropine Mesylate [Cogentin 1 mg Tablet] 1 mg PO BID #60 tablet Diazepam [Valium 2 mg Tablet] 2 mg PO Q12HP PRN #14 tablet PRN Reason: FOR ANIETY/AGITATION Lorazepam [Ativan 0.5 mg Tablet] 0.5 mg PO Q8HP PRN #20 tablet PRN Reason: FOR ANXIETY Oxycodone HCl [Oxy-Ir 5 mg Tablet] 5 mg PO Q4HP PRN #20 tablet PRN Reason: Home Medications: Amlodipine Besylate [Norvasc 10 mg Tablet] 10 mg PO DAILY 10/11/17 Atorvastatin Calcium [Lipitor 20 mg Tablet] 20 mg PO QHS 10/11/17 Lisinopril [Prinivil 40 mg Tablet] 40 mg PO DAILY 10/11/17 Metoprolol Succinate [Toprol XL 100 mg Tablet] 100 mg PO DAILY 10/11/17 Mirtazapine [Remeron] 30 mg PO QHS 10/11/17 Omeprazole 20 mg PO BID 10/11/17 Risperidone [Risperdal] 4.5 mg PO DAILY 10/11/17 Acetaminophen [Tylenol 325 mg Tablet] 650 mg PO Q4HP PRN tablet 10/15/17 Benztropine Mesylate [Cogentin 1 mg Tablet] 1 mg PO BID #60 tablet 10/15/17 Diazepam [Valium 2 mg Tablet] 2 mg PO Q12HP PRN #14 tablet 10/15/17 Docusate Sodium [Colace 100 mg Capsule] 100 mg PO BID capsule 10/15/17 Ipratropium/Albuterol Sulfate [Duoneb 3 ml Ampul] 3 ml NEB [id number] PRN vial.neb 10/15/17 Lorazepam [Ativan 0.5 mg Tablet] 0.5 mg PO Q8HP PRN #20 tablet 10/15/17 Nicotine [Nicoderm 21 mg/24 Hr Transderm Patch] 1 each TD DAILY patch.td24 Ondansetron HCl/Pf [Zofran Inj/Pf 4 mg/2 ml Sdv] 4 mg IV Q6HP PRN vial Oxycodone HCl [Oxy-Ir 5 mg Tablet] 5 mg PO Q4HP PRN #20 tablet 10/15/17 Rivaroxaban [Xarelto 10 mg Tablet] 10 mg PO WSUPPER tablet 10/15/17 Sennosides/Docusate 8.6-50 mg [Senna Plus Tablet] 1 each PO BID tablet History of Present Illness Admission Date/PCP: 10/10/17 20:48 AMANDA ARAGON MD History of Present Illness: H&P per Dr. Leahy: JOHNNY JOINER is a 72 year old female with a past medical history of schizophrenia and hypertension who presents after falling after tripping despite the use of a walker. She fell to her left side resulting in pain denies striking her head or any other injury. She denies preceding headache, blurred vision, dizziness or weakness. No new recent changes in medications. She is in good spirits and denies pain. She is a poor historian but ambulatory and sociable at baseline. Hospital Course Hospital Course: The patient was admitted with a left hip fracture secondary to mechanical fall. She underwent cephalo-medullary nailing by Dr. Tg Hernandez on 10/12/17. She has participated well with PT/OT services but does require additional rehabilitation and therefore is transferred to SNF for short-term rehab. To follow-up with Dr. Tg Hernandez as scheduled on 11/02/17. Postoperatively the patient did develop anemia with a hemoglobin of 7.5 and was transfused 2 units packed red blood cells. Her hemoglobin has been stable since that time. She is also had difficulty with urinary retention following removal of Reyes catheter. We attempted Reyes removal on 2 occasions, but the patient continued to require straight caths for relief. Reyes catheter has been reinserted the patient started on Flomax. Recommend follow-up with urology in 10-14 days. Physical Exam Vital Signs: Temp Pulse Resp BP Pulse Ox 98.9 F 77 17 140/53 H 93 10/21/17 07:36 10/21/17 07:36 10/21/17 07:36 10/21/17 07:36 10/21/17 07:36 Intake & Output 10/20/17 10/21/17 10/22/17 06:59 06:59 06:59 Intake Total 592 743 Output Total 1925 525 Balance -1333 218 Weight 67.3 kg 64.5 kg General appearance: PRESENT: no acute distress, cooperative, thin, well- developed, well-nourished Head exam: PRESENT: atraumatic, normocephalic Eye exam: PRESENT: conjunctiva pink, EOMI, PERRLA. ABSENT: scleral icterus Ear exam: PRESENT: normal external ear exam Mouth exam: PRESENT: moist, tongue midline Neck exam: ABSENT: carotid bruit, JVD, lymphadenopathy, thyromegaly Respiratory exam: PRESENT: clear to auscultation milvia, symmetrical, unlabored. ABSENT: rales, rhonchi, wheezes Cardiovascular exam: PRESENT: RRR. ABSENT: diastolic murmur, rubs, systolic murmur Pulses: PRESENT: normal dorsalis pedis pul Vascular exam: PRESENT: normal capillary refill GI/Abdominal exam: PRESENT: normal bowel sounds, soft. ABSENT: distended, guarding, mass, organolmegaly, rebound, tenderness Rectal exam: PRESENT: deferred Extremities exam: PRESENT: tenderness - LLE tenderness; especially with ROM and ambulation, other - trace edema to left upper leg. ABSENT: calf tenderness, clubbing, pedal edema Musculoskeletal exam: PRESENT: ambulatory - side-step with assistance Neurological exam: PRESENT: alert, awake, oriented to person, oriented to place , oriented to time, oriented to situation, CN II-XII grossly intact. ABSENT: motor sensory deficit Psychiatric exam: PRESENT: normal mood, unusual affect - Baseline. ABSENT: homicidal ideation, suicidal ideation Skin exam: PRESENT: dry, warm, other - Slight ecchymosis left upper leg; old blood noted to OpSites. ABSENT: cyanosis, rash Results Laboratory Results: 10/21/17 05:28 10/21/17 05:28 10/21/17 10/21/17 05:28 05:28 WBC 8.4 RBC 3.20 L Hgb 9.7 L Hct 27.8 L MCV 87 MCH 30.3 MCHC 34.9 RDW 14.6 H Plt Count 259 Sodium 140.5 Potassium 4.3 Chloride 108 H Carbon Dioxide 22 Anion Gap 11 BUN 22 H Creatinine 0.50 L Est GFR ( Amer) > 60 Est GFR (Non-Af Amer) > 60 Glucose 84 Calcium 7.2 L 10/13/17 06:40 Troponin I 0.019 Impressions: Chest X-Ray 10/10/17 17:44 IMPRESSION: NO ACUTE RADIOGRAPHIC FINDING IN THE CHEST. Hip X-Ray 10/12/17 00:00 IMPRESSION: Intra procedural imaging and fluoro Transfer Plan - Disposition Transfer Plan: Patient is to be transferred to [facility] for short-term rehabilitation. - Time Spent with Patient Time spent with patient: Less than 30 Minutes Qualifiers - * PATIENT BEING DISCHARGED WITH ANY OF THE FOLLOWING DIAGNOSIS: No Plan Discharge Plan: Patient is to be transferred to [facility] for short-term rehabilitation. Time Spent: Less than 30 Minutes
[2017-10-21 16:14] VITALS: BP 129/59
== END 2017-10-21 16:30 | DRG 482 ==
LOC: ER 17:20 → EH 20:48 → 4S 10-11 00:15
PROVIDERS: ADMIT Internal Medicine; ATTEND Internal Medicine
PROC: 0QS734Z Reposition Left Upper Femur with Internal Fixation Device, Percutaneous Approach (ICD-10-PCS; principal; 2017-10-12 11:30)
DX: S72.142A Displaced intertrochanteric fracture of left femur, initial encounter for closed fracture (principal); W01.0XXA Fall on same level from slipping, tripping and stumbling without subsequent striking against object, initial encounter; Y93.89 Activity, other specified; Y92.89 Other specified places as the place of occurrence of the external cause; Y99.9 Unspecified external cause status; D64.9 Anemia, unspecified; R33.9 Retention of urine, unspecified; I10 Essential (primary) hypertension; F20.9 Schizophrenia, unspecified; Z79.899 Other long term (current) drug therapy; F17.210 Nicotine dependence, cigarettes, uncomplicated; Z88.0 Allergy status to penicillin
CPT/HCPCS: 01230; 36415; 36430; 71045; 80048; 80053; 81001; 82550; 82553; 84484; 85025; 85027; 85610; 85730; 86850; 86900; 86901; 86920; 93005; 93010; 93306; 94799; 96374; 99285; C1713; G8978-GP; G8979-GP; G8987-GO; G8988-GO; J1644; J2250; J2270; J2704; J3010; J3370; J3490; J7030; J7060; J7120; P9016